=== PATIENT | male | born 1985 | race Caucasian/White ===

== ENCOUNTER 2016-09-06 15:19 | Emergency (ER) | payer MEDICAID, OTHER ==
[~2016-09-06] VITALS: Ht 180.3 cm; Wt 74.8 kg
[2016-09-06 15:19] VITALS: BP 149/74
[~2016-09-06 15:19] MED LIST: NO HOME MEDICATIONS; NO HOME MEDS
== END 2016-09-06 15:31 | disposition home or self-care (01) ==
LOC: ER 15:23
DX: S05.90XA Unspecified injury of unspecified eye and orbit, initial encounter (principal); J45.909 Unspecified asthma, uncomplicated; G40.909 Epilepsy, unspecified, not intractable, without status epilepticus; X58.XXXA Exposure to other specified factors, initial encounter; Y93.9 Activity, unspecified; Y92.9 Unspecified place or not applicable; Y99.9 Unspecified external cause status
CPT/HCPCS: 99283; A4606; Z7610

== ENCOUNTER 2018-02-27 16:31 | Inpatient (IN) | payer MEDICAID, OTHER ==
[~2018-02-27] VITALS: Ht 180.3 cm; Wt 70.3 kg
--- NOTE | 2018-02-27 16:32 | NUR ---
PT ISIDRO FROM THE STREETS TO ER BED 14. PT C/O CHEST AND GENERALIZED BODY ACHES. STATES WAS AT [facility] TODAY AND LEFT BECAUSE HE WAS NOT TREATED NICE. 05/31 PAIN. FEVER AT 103 BUS CLEANER. GOWNED AND PLACED ON MONITOR. AWAITING MD STEVENS.
--- NOTE | 2018-02-27 16:45 | NUR ---
IV LINE STARTED BLOOD DRAWN AND SENT TO LAB.
--- NOTE | 2018-02-27 16:50 | NUR ---
DR LENTZ AT BEDSIDE FOR EVAL.
[2018-02-27] MEDS ORDERED: ACETAMINOPHEN ES 500 MG TABLET ONE (16:54)
[2018-02-27] MEDS ORDERED: VANCOMYCIN 1 GM in IV D5W 250 ML IV ONE (17:00)
[2018-02-27] MEDS ORDERED: PIPERACILLIN /TAZOBACTAM 3.375 G in IV D5W 50 ML IV ONE (17:00)
[2018-02-27] MEDS ORDERED: MORPHINE SULFATE INJ 2 MG/ML DISP.SYRIN IV ONE (17:00)
[2018-02-27] MEDS ORDERED: ACETAMINOPHEN ES 500 MG TABLET PO ONE (17:00)
[2018-02-27] MEDS ORDERED: IV NS 0.9% 1,000 ML BAG IV ONE (17:00)
[2018-02-27 17:25] LABS: CALCIUM, SERUM 7.5 mg/dL (8.5-10.1); CARBON DIOXIDE 23 mmol/L (21-32); CHLORIDE 103 mmol/L (98-107); CREATININE 1.1 mg/dL (0.6-1.3); GLUCOSE 130 mg/dL (74-106); POTASSIUM 3.8 mmol/L (3.5-5.1); SODIUM SERUM 132 mmol/L (136-145); UREA NITROGEN, BLOOD 21 mg/dL (7-18)
[2018-02-27] MEDS ORDERED: MORPHINE SULFATE INJ 4 MG/ML DISP.SYRIN ONE (17:26)
[2018-02-27] MEDS ORDERED: MORPHINE SULFATE INJ 2 MG/ML DISP.SYRIN ONE (17:26)
[2018-02-27 17:27] LABS: INR 1.1 (0.85-1.15)
[2018-02-27 17:31] LABS: TROPONIN I < 0.017 ng/mL (0.00-0.056)
[2018-02-27 17:37] LABS: ALANINE AMINOTRANSFERASE 32 U/L (12-78); ALBUMIN 2.3 g/dL (3.4-5.0); ALKALINE PHOSPHATASE 72 U/L (46-116); ASPARTATE AMINOTRANSFERASE 23 U/L (15-37); B-TYPE NATRIURETIC PEPTIDE 665 PG/ML (0-125); BILIRUBIN,DIRECT 0.2 mg/dL (0.0-0.2); BILIRUBIN,TOTAL 0.5 mg/dL (0.2-1.0); TOTAL PROTEIN, SERUM 6.9 g/dL (6.4-8.2)
[2018-02-27 17:44] LABS: BASOPHILS % (AUTO) 0.7 % (0.0-2.0); EOSINOPHILS % (AUTO) 1.1 % (0.0-6.0); HEMATOCRIT 24 % (39-51); HEMOGLOBIN 7.9 g/dL (13.5-17.5); LYMPHOCYTES # (AUTO) 0.1 /CMM (0.8-4.8); LYMPHOCYTES % (AUTO) 15.1 % (20.0-44.0); MEAN CORPUSCULAR HEMOGLOBIN 27 PG (26.0-33.0); MEAN CORPUSCULAR HGB CONC 33 g/dl (31.0-36.0); MEAN CORPUSCULAR VOLUME 81 fL (80-96); MONOCYTES # (AUTO) 0.1 /CMM (0.1-1.30); MONOCYTES % (AUTO) 17.6 % (2.0-12.0); NEUTROPHILS # (AUTO) 0.3 /CMM (1.8-8.9); NEUTROPHILS % (AUTO) 65.5 % (43.0-81.0); PLATELET COUNT (AUTO) 84 /CMM (150-450); RDW COEFFICIENT OF VARIATION 16.5 (11.5-15.0); RED BLOOD CELL COUNT(AUTO) 2.96 MIL/uL (4.5-6.0)
[2018-02-27 17:56] LABS: WHITE BLOOD COUNT (AUTO) 0.4 K/uL (4.3-11.0)
--- NOTE | 2018-02-27 18:00 | NUR ---
CALLED NURSING SUP. FOR TELE BED
[2018-02-27] MEDS ORDERED: IV NS 0.9% 1,000 ML IV PRN (18:43)
[2018-02-27] MEDS ORDERED: ONDANSETRON HCL/PF 4 MG/2 ML VIAL IVP PRN (19:00)
[2018-02-27] MEDS ORDERED: ACETAMINOPHEN 325 MG TABLET PO PRN (19:00)
[2018-02-27] MEDS ORDERED: TEMAZEPAM 15 MG CAPSULE PO PRN (19:00)
[2018-02-27] MEDS ORDERED: MAG HYDROX/AL HYDROX/SIMETH 30 ML UDC PO PRN ×2 (19:00→20:00)
[2018-02-27] MEDS ORDERED: MAGNESIUM HYDROXIDE 30 ML UDC PO PRN ×2 (19:00→20:00)
[2018-02-27] MEDS ORDERED: ENOXAPARIN SODIUM 40 MG/0.4 ML DISP.SYRIN SQ SCH (19:00)
--- NOTE | 2018-02-27 19:15 | NUR ---
TELE 321-1 FOR CHEST PAIN AND ENDOCARDITIS, MIKE MARTINEZ ADMITTING
--- NOTE | 2018-02-27 19:35 | NUR ---
tele/rn notes NEW ADMITTED PATIENT ARRIVED ON A GURNEY FROM ER WITH COMPLAIN OF SEVERE PAIN GENERALIZED, COMPLAINING UNABLE TO SWALLOW PILL, PATIETN ALERT, ORIENTED,WITHE ELEVATED BODY TEMPERATURE TEMPERATURE AT 100.2, PULSE 105, R- 16, O2 SAT AIN RA AT 100%, WITH LOW B/P AT 89/56.. IN NS ORDERED TO RUN AT 100ML/HR. TELE AT SR 90, OBSERVE BIG TOE OPEN WOUND. LFA GAUGE 18, PATENT W/ NO/ S/S OF INFILTRATION. RECEIVED REPORT FO TELE MONITORING , MD MARTINEZ ADMITTING MD, HX OF AIDS, HIV, SEIZURE AND ASTHMA, NKA/. BED IN LOCK POSIITON. WILL F/U WITH ADMITTTING MD FOR ORDER, PAIN MEDICATION REQUESTED MONITORING.
[2018-02-27 20:00] VITALS: BP 108/55
[2018-02-27] MEDS: IV NS 0.9% 1,000 ML IV PRN (20:35)
--- NOTE | 2018-02-27 20:35 | NUR ---
BERNABE NICHOLS AT BED SIDE
[2018-02-27 20:42] VITALS: BP 89/56
[2018-02-27] MEDS ORDERED: FEE PK DOSING 1 MIN EA MC ONE (20:50)
[2018-02-27] MEDS: MORPHINE SULFATE INJ 2 MG/ML DISP.SYRIN IM PRN (21:44)
[2018-02-27] MEDS: ONDANSETRON HCL/PF 4 MG/2 ML VIAL IVP PRN (21:49)
[2018-02-27] MEDS: ENOXAPARIN SODIUM 40 MG/0.4 ML DISP.SYRIN SQ SCH (21:50)
--- NOTE | 2018-02-27 22:00 | NUR ---
tele/rn notes patient in bed, skin warm to touch monitoring for any s/s of complication, no bleeding observe, and reported
--- NOTE | 2018-02-27 22:10 | NUR ---
TELE/RN PATIENT REPORTED PAIN SEVERE GENERALIZED, PHYSICAL CHEMIST LEE ORDERED FOR PRN PAIN MEDICATION MORPHINE 1MG IVP EVERY 4HRS, TO HOLD IF SBP <100
[2018-02-28] VITALS: BP 106/64
[2018-02-28] MEDS ORDERED: PIPERACILLIN /TAZOBACTAM 3.375 G VIAL IV ONE ×2 (00:33→04:50)
[2018-02-28] MEDS: PIPERACILLIN /TAZOBACTAM 3.375 G in IV D5W 50 ML IV SCH ×4 (00:40→18:11)
--- NOTE | 2018-02-28 01:17 | NUR ---
TELE/RN NOTES PATIENT OBSERVE PAIN SEVERE, GUARDING, GRIMACE, VERBALIZE PAIN
[2018-02-28] MEDS: MORPHINE SULFATE INJ 2 MG/ML DISP.SYRIN IM PRN ×2 (01:47→06:50)
[2018-02-28] MEDS: VANCOMYCIN 1 GM in IV D5W 250 ML IV SCH ×3 (02:09→20:00)
[2018-02-28 04:00] VITALS: BP_SYST 112; BP_SYST 150; BP_DIAS 56; BP_DIAS 59; BP_DIAS 65
--- NOTE | 2018-02-28 04:00 | NUR ---
tele/rn notes LAB WAS CONTACTED URINE COLLECTED
--- NOTE | 2018-02-28 06:27 | NUR ---
317-1 TELE/RN NOTES PATIENT IN SINUS RYTHM AT 90, PAIN REPORTED, OBSERVE, BEING MANAGE WITH PRN MORPHINE 1MG/0.5ML IVP, ON REVERSE ISOLATION WITH LOW WBC, ALERT, ORIENTED, , WILL ENDORSE TO AM RN FOR JOEL.
[2018-02-28] MEDS ORDERED: PANTOPRAZOLE 40 MG TABLET.DR PO SCH (07:30)
[2018-02-28 08:00] VITALS: BP 111/59
--- NOTE | 2018-02-28 08:00 | NUR ---
TELE/RN AM NOTES RECEIVED PATIENT ALERT AND ORIENTED X4.VERBALLY RESPONSIVE.IMPATIENT.INSISTS TO HAVE ICE CHIPS INSPITE OF EXPLAINING HE'S ON NPO AND AWAITING FOR MUSIC MANAGER AND HOSPITALIST TO SEE HIM.PT HAS FEVER T 102.6.COOLING MEASURES RENDERED.WILL INFORM MD AND ADMINISTER TYLENOL PRN IS PO IS OK.ON SINUS RYTHM AT 74.DENIES PAIN AT THIS TIME. ON REVERSE ISOLATION PRECAUTIONS DUE TO LOW WBC AND NEUTROPENIA.CALL LIGHT PLACED WITHIN REACH.
[2018-02-28] MEDS: IV NS 0.9% 1,000 ML IV PRN (08:35)
[2018-02-28] MEDS: ACETAMINOPHEN 325 MG TABLET PO PRN (09:32)
[2018-02-28] MEDS: PANTOPRAZOLE 40 MG TABLET.DR PO SCH (09:32)
[2018-02-28] MEDS: ONDANSETRON HCL/PF 4 MG/2 ML VIAL IVP PRN ×2 (10:36→18:12)
[2018-02-28 12:01] LABS: CALCIUM, SERUM 6.8 mg/dL (8.5-10.1); CREATININE 1.1 mg/dL (0.6-1.3); POTASSIUM 3.4 mmol/L (3.5-5.1)
[2018-02-28 16:00] VITALS: BP 117/62
--- NOTE | 2018-02-28 16:11 | NUR ---
FOLLOW UP CALL MADE TO [facility] REGARDING PT'S CARDIAC CATH RECORD.PER MEDICAL RECORD:AISHWARYA,NO CARDIAC CATH PROCEDURE WAS DONE DURING PT'S STAY IN [facility].
--- NOTE | 2018-02-28 17:33 | NUR ---
CALLED DR TERESA BRISCOE TO CLARIFY IF HE WANTS TO ADD CBC TEST WITH THE VANCO TROUGH BLOOD DRAW AT THIS TIME SINCE THERE WAS NO CBC DRAWN THIS AM.DR MOORE STATED TO JUST DO THE CBC IN AM.
[2018-02-28] MEDS ORDERED: POTASSIUM CHLORIDE 20 MEQ TAB.PRT.SR PO ONE (18:00)
[2018-02-28] MEDS: MORPHINE SULFATE INJ 2 MG/ML DISP.SYRIN IV PRN ×2 (18:11→23:31)
--- NOTE | 2018-02-28 18:30 | NUR ---
PT RESTING IN BED WITH ONGOING ZOSYN IVPB-KINKED DUE TO PT LEANING ON THE TUBING.RESUMED ONGOING ZOSYN IVPB AND WILL ENDORSE VANCO IV TO NIGHT NURSE.PT DENIES ANY DISTRESS.CALL LIGHT PLACED WITHIN REACH.
--- NOTE | 2018-02-28 19:45 | NUR ---
RN OPENING NOTES RECEIVED REPORT FROM DAYSHIFT RN WILIAM. FOUND Pt AWAKE, RESTING IN BED. NO S/S OF ACUTE DISTRESS OR SOB NOTED. Pt IS A/OX3, VERBAL, ABLE TO MAKE NEEDS KNOWN. IV ACCESS ON LFA #18G, IVF NS @100ML/HR. & LFA #18G, SL. SAFETY MEASURES IN PLACE. BED LOW, LOCKED, HOB ELEVATED, SIDE RAILS UP, CALL LIGHT and BED SIDE TABLE WITHIN REACH. WILL CONTINUE TO MONITOR Pt THROUGHOUT THE NIGHT FOR SAFETY.
[2018-02-28 20:00] VITALS: BP 104/62
[2018-02-28] MEDS: METHADONE HCL 10 MG TABLET PO SCH (20:44)
[2018-02-28] MEDS: ENOXAPARIN SODIUM 40 MG/0.4 ML DISP.SYRIN SQ SCH (20:45)
[2018-02-28] MEDS ORDERED: CLONIDINE HCL 0.3 MG/24H PTWK 1 EA PATCH TD SCH (21:00)
[2018-02-28] MEDS ORDERED: CEFTRIAXONE 1 G in IV NS 0.9% 50 ML IV SCH (21:00)
--- NOTE | 2018-02-28 23:12 | NUR ---
RN NOTES STARTED ROCEPHIN LATE DUE TO THE VANCO BEING GIVEN LATE.
[2018-03-01] MEDS: VANCOMYCIN 1 GM in IV D5W 250 ML IV SCH ×2 (03:06→10:26)
[2018-03-01] MEDS: MORPHINE SULFATE INJ 2 MG/ML DISP.SYRIN IV PRN (03:39)
[2018-03-01] MEDS: IV NS 0.9% 1,000 ML IV PRN (06:44)
--- NOTE | 2018-03-01 06:45 | NUR ---
RN CLOSING NOTES NO SIGNIFICANT CHANGES IN Pt's CONDITION. Pt REMAINS IN STABLE CONDITION AT THIS TIME. NO S/S OF ACUTE DISTRESS OR SOB NOTED DURING THE NIGHT. ALL NEEDS MET AND ATTENDED TO. SAFETY MEASURES IN PLACE. Pt REFUSED AM LABS, SAID TO COME BACK LATER AFTER HE SLEEPS MORE. WILL ENDORSE TO DAYSHIFT RN FOR Pt's JOEL.
[2018-03-01] MEDS: PANTOPRAZOLE 40 MG TABLET.DR PO SCH ×2 (07:30→08:30)
[2018-03-01 08:00] VITALS: BP 121/72
--- NOTE | 2018-03-01 08:00 | NUR ---
MS RN AM NOTES RECEIVED Pt AWAKE, RESTING IN BED. NO S/S OF ACUTE DISTRESS OR SOB NOTED. Pt IS A/OX3, VERBAL, ABLE TO MAKE NEEDS KNOWN. IV ACCESS ON LFA #18G, IVF NS @100ML/HR. & LFA #18G, SL.PT AMBULATING ALONG THE HALLWAY AND WANTED TO SMOKE OUTSIDE AND IS IMPATIENT AND SCREAMING-WANTING TO SMOKE RIGHT AWAY.EXPLAINED THAT OUR STAFF IS STILL FEEDING PATIENTS FOR BREAKFAST AT THIS TIME AND HE NEEDS TO FOLLOW HOSPITAL POLICY.PT SIGNED UP THE SMOKING CONSENT AND ANGRILY WENT TO BACK TO HIS ROOM. SAFETY MEASURES IN PLACE. BED LOW, LOCKED, HOB ELEVATED, SIDE RAILS UP, CALL LIGHT and BED SIDE TABLE WITHIN REACH. WILL CONTINUE TO MONITOR
[2018-03-01] MEDS: METHADONE HCL 10 MG TABLET PO SCH ×2 (08:34→09:00)
--- NOTE | 2018-03-01 08:36 | NUR ---
ATTEMPTED TO ADMINISTER MORNING MEDICATION. PATIENT STATES METHADONE DOESN'T WORK AND REFUSED ALL MEDICATION. PATIENT RAISED VOICE WHEN EXPLAINING REFUSAL OF MEDICATION. Addendum: 03/01/18 at 0838 by RADHA DONOHUE RN Amended: Links added.
--- NOTE | 2018-03-01 08:40 | NUR ---
PT REFUSED METHADONE SAYING IT DOESN'T WORK AND PREFERS TO TAKE MORPHINE IV EVEN IF THE PT HASN'T EVEN TAKEN METHADONE YET AT ALL.EXPLAINED THE RISKS AND BENEFITS.PT WAS VERY ANGRY.
[2018-03-01 11:07] LABS: BASOPHILS % (AUTO) 0.3 % (0.0-2.0); EOSINOPHILS % (AUTO) 0.3 % (0.0-6.0); HEMATOCRIT 29 % (39-51); HEMOGLOBIN 9.7 g/dL (13.5-17.5); LYMPHOCYTES # (AUTO) 0.3 /CMM (0.8-4.8); LYMPHOCYTES % (AUTO) 38.8 % (20.0-44.0); MEAN CORPUSCULAR HEMOGLOBIN 27 PG (26.0-33.0); MEAN CORPUSCULAR HGB CONC 33 g/dl (31.0-36.0); MEAN CORPUSCULAR VOLUME 82 fL (80-96); MONOCYTES # (AUTO) 0.1 /CMM (0.1-1.30); MONOCYTES % (AUTO) 19.3 % (2.0-12.0); NEUTROPHILS # (AUTO) 0.3 /CMM (1.8-8.9); NEUTROPHILS % (AUTO) 41.3 % (43.0-81.0); PLATELET COUNT (AUTO) 60 /CMM (150-450); RDW COEFFICIENT OF VARIATION 16.6 (11.5-15.0)
[2018-03-01 11:11] LABS: *BASOS 0 % (Not Estab.); *COMMENTS Note: (.); *EOS 0 % (Not Estab.); *HCT 22.3 % (37.5-51.0); *HGB 7.3 g/dL (13.0-17.7); *LYMPHOCYTES 33 % (Not Estab.); *LYMPHS, ABSOLUTE 0.2 x10E3/uL (0.7-3.1); *MCH 26.3 pg (26.6-33.0); *MCHC 32.7 g/dL (31.5-35.7); *MCV 80 fL (79-97); *MONOCYTES 6 % (Not Estab.); *NEUTROPHILS 61 % (Not Estab.); *NRBC 10 % (0 - 0); *PLT 27 x10E3/uL (150-379); *RBC 2.78 x10E6/uL (4.14-5.80); *RDW 16.5 % (12.3-15.4)
[2018-03-01 11:13] LABS: WHITE BLOOD COUNT (AUTO) 0.7 K/uL (4.3-11.0)
--- NOTE | 2018-03-01 11:19 | NUR ---
Social service consult requested by director case Cyndi Btety for homeless and HIV. Pt. is a 32 year old male who was admitted to [facility] for chest pain and endocarditis. SHERMAN met with pt. bedside. Pt. is alert and oriented x 4. Pt. was cooperative with SW during the assessment. Pt. has a history of HIV diagnosis since 2010. The patient has not been on any HIV medications. Pt. also has a history of seizures and heroin use. He also has a history of seizures and heroin use. Pt. was recently at [facility] for endocarditis but left AMA because he felt they were not treating him well. Pt. states he is homeless and has been for the past few months. Pt. became homeless after his roommate . Pt. is a heroin user but states he has not used in two months. Pt. denies alcohol use but uses marijuana once in a while. Pt. was caught smoking marijuana in the hospital and it was confiscated. Pt. has no source of income and receives food stamps only. SHERMAN encouraged pt. to apply for General Relief at [facility] located at [address] [place] [address] in [place] since pt. has an open case with that office. Pt. states he has been staying in motels. When asked how he can afford motels, pt. 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 declined stating he will take the resources with him. Pt. stated he will most likely go to his mother in [facility]. Pt. is in contact with his mother. SHERMAN also gave pt. list of [facility] clinics and encouraged pt. to go to them for further resources and HIV medication management. SHERMAN gave pt. homeless residential and food bank resources along with F clinics locations and contact information. No other social service needs are requested at this time. SW is available, if needed.
[2018-03-01 11:37] LABS: MAGNESIUM 1.4 mg/dL (1.8-2.4); PHOSPHORUS 2.7 mg/dL (2.5-4.9); POTASSIUM 3.9 mmol/L (3.5-5.1)
--- NOTE | 2018-03-01 13:00 | NUR ---
PT APPEARS BETTER GETTING OUT OF BED AMBULATING INDEPENDENTLY ALONG THE HALLWAY EXPLAINING TO HIM TO WEAR MASKS SINCE HIS IMMUNE SYSTEM IS LOW-PT IS NON COMPLIANT.NO MORPHINE IV WAS GIVEN UP TO THIS TIME AND HASN'T VOMITED SINCE MORNING. PT EVEN VERBALIZED LAST NIGHT OF REFUSING ZOFRAN IF HE VOMITS SAYING ZOFRAN MAKES HIS PAIN WORSE.PT STATED THAT MORPHINE WORKS BETTER ON ITS OWN WITHOUT ZOFRAN EVEN WHEN HE'S VOMITING.PT EVEN WENT OUT TO SMOKE TWICE TODAY ACCOMPANIED BY EXCEL ANALYST.NO S/S OF PAIN OR DISTRESS.
--- NOTE | 2018-03-01 13:35 | NUR ---
PT CHANGED HIS MIND AND WANTED TO TAKE HIS METHADONE HCL 10 MG PO NOW.PT HAS NO EPISODE OF VOMITING SINCE AM AND NO MORPHINE WAS GIVEN UP TO THIS TIME.PT HAD WATERY STOOL SPLATTERED ALL OVER THE RODRIGUEZ OF HIS TOILET.SPOKE TO THE PT GENTLY AND EXPLAINED TO HIM NOT TO DO THAT AGAIN.ASKED HELP FROM STUFFING MACHINE OPERATOR TO CLEAN IT UP.
[2018-03-01] MEDS: ACETAMINOPHEN 325 MG TABLET PO PRN (13:54)
--- NOTE | 2018-03-01 13:54 | NUR ---
Patient stated he was willing to take morning medication now. Attempted to administer Methadone and protonix now. Patient refused stating he wanted liquid medication only. Offered to crush methadone and mix with apple sauce which was a method that was used yesterday, but patient refused. Oral temperature was 100.3. Attempted to administer tylenol but patient refused. Provided patient with ice packs. Notified Delicia BARRIENTOS secondary to medication refusal. Addendum: 03/01/18 at 1401 by RADHA DONOHUE RN Amended: Links added.
--- NOTE | 2018-03-01 14:00 | NUR ---
PT REFUSED AGAIN SECOND TIME TO TAKE HIS METHADONE,TYLENOL 650 MG PO FOR HIS MILD FEVER OF 100.3 AND PROTONIX INSPITE OF EXPLAINING ITS RISKS AND BENEFITS.PT STATED HE CAN'T SWALLOW THEM EVEN IF I OFFERED TO CRUSH THEM WITH APPLE SAUCE WHICH HE WAS ABLE TO SWALLOW WITHOUT DIFFICULTY YESTERDAY. PT WAS SO ANGRY AND WAS SCREAMING WANTING TO SEE THE PAIN MANAGEMENT DOCTOR.NOTIFIED DR MOBLEY AND MADE AWARE.DR MOBLEY STATED NO METHADONE,NO MORPHINE.NO REPLACEMENT FOR THE METHADONE NEEDED.
[2018-03-01 16:00] VITALS: BP 117/71
[2018-03-01] MEDS ORDERED: NYSTATIN (PYXIS) 500,000 UNIT/5 ML ORAL.SUSP PO SCH (17:30)
--- NOTE | 2018-03-01 18:23 | NUR ---
PT'S VANCO TROUGH IS 23 AND PHARMACISTDIPAK CALLED AND WILL CHANGE THE PRESENT [facility] IVPB.WILL ENDORSE TO NIGHT NURSE.
--- NOTE | 2018-03-01 18:50 | NUR ---
PT SMOKED OUTSIDE 3X WITH BECK OPERATOR DURING THE SHIFT AMBULATING INDEPENDENTLY ALONG THE HALLWAY WITH STEADY GAIT .PT STATED THAT HE MADE BM 3X TODAY.INSTRUCTED PT TO SHOW THE NURSE HIS BM AND NOT TO FLUSH THE TOILET.PT WANTS TO TAKE HIS METHADONE PILL NOW.EXPLAINED TO HIM THAT I ATTEMPTED 2X TO PULL OUT HIS METHADONE THIS AM AND AFTERNOON AND ONLY REFUSING IN THE END.PT HASN'T VOMITED THE WHOLE 12 HOUR SHIFT TODAY AND WAS ABLE TO EAT SOME FOOD TODAY COMPARED TO YESTERDAY'S WHERE HE WAS VOMITING HUGE AMOUNTS OF FLUIDS TWICE WHERE PT JUST STAYED IN BED THE WHOLE DAY AND WAS EVEN ASSISTED IN GETTING OOB DUE TO WEAKNESS.DR MOBLEY AND PT'S MOM,KIM AWARE.
--- NOTE | 2018-03-01 19:00 | NUR ---
PT ASKED FOR METHADONE FOR THE 4TH TIME AND EXPLAINED NOT TO REFUSE THIS TIME SINCE HE'S BEEN CHANGING HIS MIND AND REFUSED LATER ON.IT'S OK TO GIVE METHADONE PO PER DR MARLEY.WILL CRUSH WITH APPLE SAUCE.
[2018-03-01 20:00] VITALS: BP 118/69
[2018-03-01] MEDS ORDERED: METHADONE HCL 10 MG TABLET PO ONE (20:00)
[2018-03-01] MEDS: VANCOMYCIN 0.75 GM in IV NS 0.9% 250 ML IV SCH (20:00)
[2018-03-01] MEDS: NYSTATIN (PYXIS) 500,000 UNIT/5 ML ORAL.SUSP PO SCH (20:30)
[2018-03-01] MEDS: SULFAMETH/TRIMETH 800/160 MG 1 UDTAB TABLET PO SCH (20:31)
[2018-03-01] MEDS: AZITHROMYCIN 250 MG TABLET PO SCH (20:31)
[2018-03-01] MEDS: ACYCLOVIR 800 MG TABLET PO SCH (20:32)
[2018-03-01] MEDS: ENOXAPARIN SODIUM 40 MG/0.4 ML DISP.SYRIN SQ SCH ×2 (20:41→21:00)
[2018-03-01] MEDS: CEFEPIME 1 GM in IV D5W 50 ML IV SCH (20:42)
[2018-03-01] MEDS: FLUCONAZOLE (100 MG) 100 MG TABLET PO SCH (20:43)
--- NOTE | 2018-03-01 20:45 | NUR ---
RN NOTES PATIENT IS ALERT AND ORIENTED X4, IRRITABLE, ANXIOUS, DEMANDING TO SMOKE, ON REVERSE ISOLATION, NOT COMPLIANT, WANTS TO GO DOWN. EXPLAINED TO PATIENT ABOUT REVERSE ISOLATION, AND GIVEN A LIMIT OF ONE MORE TIME TO GO DOWN, PATIENT VERBALIZED UNDERSTANDING. NEW ORDERS FROM INFECTIOUS DISEASE MD, AND DR. HARRIS, HOUSE MOVER SUPERVISOR. NEEDS ATTENDED, CALL LIGHT WITHIN REACH.
[2018-03-01] MEDS: ONDANSETRON HCL/PF 4 MG/2 ML VIAL IVP PRN (20:50)
[2018-03-01] MEDS: TEMAZEPAM 15 MG CAPSULE PO PRN (21:26)
[2018-03-01] MEDS ORDERED: TBO-FILGRASTIM 480 MCG/0.8 ML ML SQ SCH (21:30)
--- NOTE | 2018-03-01 21:47 | NUR ---
LOVENOX HELD PLATELET 60, VANCOMYCIN HELD, VANCO TROUGH 23
[2018-03-01 22:53] VITALS: BP 118/69
[2018-03-02] MEDS: IV NS 0.9% 1,000 ML IV PRN (01:04)
--- NOTE | 2018-03-02 02:49 | NUR ---
NOTIFIED BY RN FIELD APPLICATIONS SPECIALIST CRAIG NOT AVAILABLE
--- NOTE | 2018-03-02 02:58 | NUR ---
NOTIFIED PHARMACIST BASIC SCIENCES DEAN REGARDING VANCO TROUGH RESULT OF 23, PER PHARMACIST, HOLD DOSE AT 0400 AND WAIT FOR NEXT TROUGH DONE ON 03/02/18 AT 1100
[2018-03-02] MEDS: VANCOMYCIN 0.75 GM in IV NS 0.9% 250 ML IV SCH ×3 (03:44→17:39)
--- NOTE | 2018-03-02 06:47 | NUR ---
PATIENT IS CALM, COOPERATIVE, NO DISTRESS, SEEN BY INFECTIOUS DISEASE MD AND PROCESS IMPROVEMENT MANAGER WITH NEW ORDERS, RECEIVED IV ABX SCHEDULED, VANCOMYCIN IV HELD X2, VANCO TROUGH 23, PHARMACY AWARE, UNABLE TO GIVE GRANIX, MEDICATION NOT AVAILABLE, STAYED AND SLEPT IN ROOM FOR 8 HOURS, RECEIVED CALLS FROM MOTHER AND GIRLFRIEND. NEEDS ATTENDED, CALL LIGHT WITHIN REACH.
--- NOTE | 2018-03-02 08:00 | NUR ---
MS RN AM NOTES RECEIVED PATIENT ALERT AND ORIENTED X4.VERBALLY RESPONSIVE.IMPATIENT AND SCREAMS AT STAFF.AFEBRILE.LOVES TO HAVE ICE CHIPS .DENIES PAIN AT THIS TIME. ON REVERSE ISOLATION PRECAUTIONS DUE TO LOW WBC AND NEUTROPENIA.CALL LIGHT PLACED WITHIN REACH.
[2018-03-02 08:25] VITALS: BP 117/82
[2018-03-02 08:45] LABS: BASOPHILS % (AUTO) 1.1 % (0.0-2.0); EOSINOPHILS % (AUTO) 1.1 % (0.0-6.0); HEMATOCRIT 24 % (39-51); HEMOGLOBIN 7.8 g/dL (13.5-17.5); LYMPHOCYTES # (AUTO) 0.4 /CMM (0.8-4.8); LYMPHOCYTES % (AUTO) 42.3 % (20.0-44.0); MEAN CORPUSCULAR HEMOGLOBIN 27 PG (26.0-33.0); MEAN CORPUSCULAR HGB CONC 33 g/dl (31.0-36.0); MEAN CORPUSCULAR VOLUME 80 fL (80-96); MONOCYTES # (AUTO) 0.2 /CMM (0.1-1.30); MONOCYTES % (AUTO) 20.1 % (2.0-12.0); NEUTROPHILS # (AUTO) 0.4 /CMM (1.8-8.9); NEUTROPHILS % (AUTO) 35.4 % (43.0-81.0); PLATELET COUNT (AUTO) 58 /CMM (150-450); RDW COEFFICIENT OF VARIATION 15.9 (11.5-15.0); RED BLOOD CELL COUNT(AUTO) 2.94 MIL/uL (4.5-6.0)
[2018-03-02 08:46] LABS: CREATININE 1.1 mg/dL (0.6-1.3); POTASSIUM 3.4 mmol/L (3.5-5.1)
[2018-03-02] MEDS: NYSTATIN (PYXIS) 500,000 UNIT/5 ML ORAL.SUSP PO SCH ×4 (09:07→21:19)
[2018-03-02] MEDS: FLUCONAZOLE (100 MG) 100 MG TABLET PO SCH (09:07)
[2018-03-02] MEDS: PANTOPRAZOLE 40 MG TABLET.DR PO SCH (09:08)
[2018-03-02] MEDS: METHADONE HCL 10 MG TABLET PO SCH (09:08)
--- NOTE | 2018-03-02 09:19 | NUR ---
PT WAS SO ANXIOUS AND WANT TO GO DOWN FOR A SMOKE.EXPLAINED TO THE PT THAT HE NEEDS TO HAVE HIS ATB IVPB BADLY AND HAS TO COME BACK IN 10 MINS.PT AGREED.PT WENT DOWN FOR A SMOKE WITH A BALANCE WHEEL HAND FILER.
[2018-03-02] MEDS: ACYCLOVIR 800 MG TABLET PO SCH ×2 (09:36→17:39)
[2018-03-02] MEDS: CEFEPIME 1 GM in IV D5W 50 ML IV SCH ×2 (09:36→21:19)
[2018-03-02] MEDS ORDERED: LOPERAMIDE HCL UDC(2 MG/10 ML) 2 MG/10 ML UDC PO PRN (10:30)
[2018-03-02] MEDS ORDERED: POTASSIUM CHLORIDE 20 MEQ TAB.PRT.SR PO SCH (10:30)
[2018-03-02 10:38] LABS: EOSINOPHILS % (MANUAL) 1 % (0-4); LYMPHOCYTES % (MANUAL) 45 % (16-48); MONOCYTES % (MANUAL) 19 % (0-11.0); NEUTROPHILS % (MANUAL) 35 (42-76)
[2018-03-02] MEDS: TBO-FILGRASTIM 480 MCG/0.8 ML ML SQ SCH (10:44)
[2018-03-02] MEDS ORDERED: LIDOCAINE VISCOUS 2% UD 15 ML UDC MM ONE (11:42)
[2018-03-02] MEDS ORDERED: diphenhydrAMINE HCL ELIX 25 MG/10 ML UDC PO ONE (11:42)
[2018-03-02] MEDS ORDERED: MAG HYDROX/AL HYDROX/SIMETH 30 ML UDC PO ONE (11:42)
[2018-03-02] MEDS ORDERED: MAGIC MOUTHWASH MM PRN (12:00)
--- NOTE | 2018-03-02 14:34 | NUR ---
PT IS IN A BETTER MOOD AND KEEPS SAYING SORRY FOR HIS HOT TEMPER AND SCREAMING.ACTIVE LISTENING AND EMOTIONAL SUPPORT PROVIDED.VERBALIZES HOW WE PROVIDE HIM GOOD CARE COMPARED TO OTHER HOSPITALS.
[2018-03-02 16:07] VITALS: BP 111/64
[2018-03-02] MEDS: SULFAMETH/TRIMETH 800/160 MG 1 UDTAB TABLET PO SCH (18:03)
[2018-03-02] MEDS: AZITHROMYCIN 250 MG TABLET PO SCH (18:03)
--- NOTE | 2018-03-02 18:43 | NUR ---
PT JUST ORDERED ARCHIVIST POLITICAL HISTORY SAYING HIS THROAT IS GETTING BETTER AND WILL HAVE NO PROBLEM SWALLOWING/EATING THE PIZZA.PT WAS COOPERATIVE AND DENIES ANY PAIN OR DISTRESS.PT JUST TOOK THE AM ROUTINE METHADONE DOSE AND DIDN'T ASK FOR ANY MORPHINE OR OTHER PAIN MEDICINE AFTER THAT.NO VOMITING EPISODE.PT HAD SEMI WATERY STOOL IN AM -INFORMED DR TERESA BRISCOE AND MADE AWARE WITH ORDERS FOR LOPERAMIDE LIQUID.NOTIFIED PHARMACIST,CARISA EARLY AFTERNOON AND CALLED HER SECOND TIME TO REFILL BOTH OMNICELL.
[2018-03-02] MEDS: LOPERAMIDE HCL (2 MG CAP) 2 MG CAPSULE PO PRN (19:07)
--- NOTE | 2018-03-02 19:25 | NUR ---
MS RN OPENING NOTES RECEIVED PT AWAKE, RESTING IN BED. NO S/S OF ACUTE DISTRESS OR SOB NOTED. PT IS A/OX4, VERBAL, ABLE TO MAKE NEEDS KNOWN. IV ACCESS TO RIGHT HAND #20G, IVF NS @100ML/HR. & LFA#18G, SL. PT IS ABLE TO AMBULATE & WANTS TO GO TO SMOKE. .EXPLAINED THAT THE NURSE WILL TAKE HIM SHORTLY, AGREED @ THIS TIME TO WAIT. HAS HX OF IRRITABILITY/AGITATION. ON REVERSE ISOLATION. ABLE TO SWALLOW WITHOUT ASPIRATING. HAD PIZZA A WHILE AGO, TOLERATED WELL. BRP. SAFETY MEASURES IN PLACE. BED LOW, LOCKED, HOB ELEVATED, SIDE RAILS UP, CALL LIGHT and BED SIDE TABLE WITHIN REACH. WILL CONTINUE TO MONITOR CLOSELY.
[2018-03-02 20:00] VITALS: BP 108/66
[2018-03-02] MEDS: ENOXAPARIN SODIUM 40 MG/0.4 ML DISP.SYRIN SQ SCH (21:00)
--- NOTE | 2018-03-02 21:00 | NUR ---
MS RN NOTE PT WENT TO SMOKE OUT WITH THE NURSE & CAME BACK. NO AGITATION OR IRRITABILITY NOTED. COOPERATIVE @ THIS TIME WITH MEDS BUT REFUSING NS IVF.
--- NOTE | 2018-03-02 21:27 | NUR ---
HELD LOVENOX PT'S PLATELETS NOTED TO BE 58 TODAY & PER MD ORDER LOVENOX NEEDS TO BE HELD IF PLATELETS ARE 60 OR BELOW. MD ORDER FOLLOWED.
--- NOTE | 2018-03-02 23:00 | NUR ---
REFUSED IFV PT REFUSED IVF ORDERED BUT AGREED TO HAVE IV ATB'S. STATED HE HAS GOOD PO INTAKE, DOESN'T NEED IVF. WHEN TRIED TO EXP-RINKU, GOT UPSET & CONTINUED TO REFUSE.
[2018-03-03] MEDS: VANCOMYCIN 0.75 GM in IV NS 0.9% 250 ML IV SCH (01:09)
--- NOTE | 2018-03-03 01:30 | NUR ---
MS RN NOTE NURSE STARTED THE IV ATB VANCO & WAITED IN THE ROOM TO MAKE SURE THAT IV IS RUNNING OK BUT PT GOT UPSET & ASKED THE NURSE TO LEAVE THE ROOM RIGHT AWAY, WHEN EXPLAINED, PT USED FOUL LANGUAGE TOWARDS THE NURSE. MADE SURE THAT IV WAS RUNNING OK & LEFT THE ROOM. MONITORING CLOSELY.
--- NOTE | 2018-03-03 06:50 | NUR ---
MS RN CLOSING NOTES PT IS ASLEEP @ THIS TIME. NO S/S OF ACUTE DISTRESS OR SOB NOTED. PT IS A/OX4, VERBAL, ABLE TO MAKE NEEDS KNOWN. IV ACCESS TO RIGHT HAND #20G, IVF NS @100ML/HR. & LFA#18G, SL. PT IS ABLE TO AMBULATE WITH STANDBY ASSISTANCE. HAS HX OF IRRITABILITY/AGITATION. ON REVERSE ISOLATION. ABLE TO SWALLOW WITHOUT ASPIRATING. NO BM @ ROLLER PAINTER. BRP. SAFETY MEASURES IN PLACE. BED LOW, LOCKED, HOB ELEVATED, SIDE RAILS UP, CALL LIGHT and BED SIDE TABLE WITHIN REACH. WILL ENDORSE TO AM RN.
--- NOTE | 2018-03-03 07:50 | NUR ---
MS RN NOTES LAB STATED PT REFUSED BLOOD DRAW. WENT IN AND PT STATED THAT "I DID NOT REFUSE, I WANTED THEM TO COME BACK AT 9 BECAUSE IM STILL SLEEPING." WILL CONTINUE TO FOLLOW UP.
--- NOTE | 2018-03-03 07:53 | NUR ---
MS RN OPENING NOTES RECEIVED PT LAYING IN BED WITH HOB ELEVATED, RESTING COMFORTABLY. PT IS EASILY AROUSABLE. RESPIRATIONS ARE EVEN AND UNLABORED, NOT IN ANY DISTRESS NOTED. IV INTACT, NO INFILTRATION NOTED. DRESSING KEPT CLEAN AND DRY. SAFETY MEASURES ARE IN PLACE. INSTRUCTED PT TO USE CALL LIGHT WHEN ASSISTANCE IS NEEDED, CALL LIGHT IS LEFT WITHIN REACH. PT STATED HE "JUST WANTS TO BE LEFT ALONE AND SLEEP." WILL CONTINUE TO MONITOR THROUGHOUT SHIFT FOR CONTINUITY OF CARE.
[2018-03-03 08:00] VITALS: BP 104/68
--- NOTE | 2018-03-03 08:50 | NUR ---
MS RN NOTES CALLED LAB AND STATED THEY WILL SEND SOMEONE TO DO BLOOD DRAW.
[2018-03-03] MEDS: METHADONE HCL 10 MG TABLET PO SCH (09:00)
--- NOTE | 2018-03-03 09:00 | NUR ---
MS RN NOTES PT REFUSED METHADONE. EXPLAINED THE RISKS AND BENEFITS, STILL NOTED W/ REFUSAL. PT STATED, "IF I DONT FEEL LIKE I NEED IT, I DONT WANT IT." HONORED PT'S DIGNITY AND THE RIGHT TO REFUSE. WILL CONTINUE TO MONITOR.
[2018-03-03] MEDS: FLUCONAZOLE (100 MG) 100 MG TABLET PO SCH (09:31)
[2018-03-03] MEDS: CEFEPIME 1 GM in IV D5W 50 ML IV SCH (09:31)
[2018-03-03] MEDS: PANTOPRAZOLE 40 MG TABLET.DR PO SCH (09:31)
[2018-03-03] MEDS: NYSTATIN (PYXIS) 500,000 UNIT/5 ML ORAL.SUSP PO SCH ×4 (09:32→22:00)
[2018-03-03] MEDS: ACYCLOVIR 800 MG TABLET PO SCH ×2 (09:32→16:00)
--- NOTE | 2018-03-03 10:05 | NUR ---
MS RN NOTES NOTIFIED PHARMACY RE: VANCO THAT LAB HAS NOT COME TO DRAW BLOOD YET FOR VANCO TROUGH.
[2018-03-03 10:22] LABS: *HIV-1 RNA BY PCR 188980 copies/mL (.); *HIV-1 log10 RNA 5.276 (.)
--- NOTE | 2018-03-03 11:30 | NUR ---
MS RN NOTES PT STATED NOBODY CAME IN FOR BLOOD DRAW. CALLED LAB AND STATED "SOMEONE IS ON THE WAY."
[2018-03-03] MEDS: TBO-FILGRASTIM 480 MCG/0.8 ML ML SQ SCH (15:55)
[2018-03-03 16:00] VITALS: BP 124/72
--- NOTE | 2018-03-03 16:07 | NUR ---
MS RN NOTES LAB IS AT BEDSIDE AT THIS FOR BLOOD DRAW.
[2018-03-03 16:44] LABS: CALCIUM, SERUM 7.7 mg/dL (8.5-10.1); CREATININE 1.1 mg/dL (0.6-1.3); MAGNESIUM 1.3 mg/dL (1.8-2.4); POTASSIUM 3.5 mmol/L (3.5-5.1)
[2018-03-03 17:24] LABS: EOSINOPHILS % (AUTO) 0.2 % (0.0-6.0); HEMATOCRIT 25 % (39-51); HEMOGLOBIN 8.2 g/dL (13.5-17.5); LYMPHOCYTES # (AUTO) 0.5 /CMM (0.8-4.8); LYMPHOCYTES % (AUTO) 13.1 % (20.0-44.0); MEAN CORPUSCULAR HEMOGLOBIN 27 PG (26.0-33.0); MEAN CORPUSCULAR HGB CONC 33 g/dl (31.0-36.0); MEAN CORPUSCULAR VOLUME 80 fL (80-96); MONOCYTES # (AUTO) 0.3 /CMM (0.1-1.30); MONOCYTES % (AUTO) 6.6 % (2.0-12.0); NEUTROPHILS # (AUTO) 3.4 /CMM (1.8-8.9); NEUTROPHILS % (AUTO) 80.1 % (43.0-81.0); PLATELET COUNT (AUTO) 83 /CMM (150-450); RDW COEFFICIENT OF VARIATION 15.6 (11.5-15.0); RED BLOOD CELL COUNT(AUTO) 3.07 MIL/uL (4.5-6.0); WHITE BLOOD COUNT (AUTO) 4.2 K/uL (4.3-11.0)
[2018-03-03] MEDS ORDERED: VANCOMYCIN 1.25 GM in IV D5W 500 ML IV ONE (17:30)
[2018-03-03] MEDS: AZITHROMYCIN 250 MG TABLET PO SCH (18:08)
[2018-03-03] MEDS: SULFAMETH/TRIMETH 800/160 MG 1 UDTAB TABLET PO SCH (18:08)
--- NOTE | 2018-03-03 18:40 | NUR ---
MS RN CLOSING NOTES ALL DUE MEDS GIVEN, NEEDS MET AND ANTICIPATED. PT REMAINS A/O X4, AFEBRILE. RESPIRATIONS ARE EVEN AND UNLABORED, NOT IN ANY ACUTE DISTRESS NOTED. IV SITE INTACT, FLUSHED AND NO INFILTRATION NOTED. VANCO INFUSING AT THIS TIME AND TOLERATING WELL.DRESSING KEPT CLEAN AND DRY. SAFETY MEASURES ARE IN PLACE. REMINDED PT TO USE CALL LIGHT WHEN ASSISTANCE IS NEEDED, CALL LIGHT IS LEFT WITHIN REACH. WILL ENDORSE TO NEXT SHIFT FOR CONTINUITY OF CARE.
--- NOTE | 2018-03-03 19:35 | NUR ---
RN OPENING NOTES RECEIVED REPORT FROM TIMWYMATTHEW OWEN. FOUND Pt AWAKE, RESTING IN BED. NO S/S OF ACUTE DISTRESS OR SOB NOTED. Pt IS A/OX4, VERBAL, ABLE TO MAKE NEEDS KNOWN. IV ACCESS ON LFA #18G, SL & RHAND #20G, IVF NS @100ML/HR. Pt IS ASKING TO GO DOWN FOR SMOKE, INFORMED HIM THAT HE NEEDS TO WAIT UNTIL A STAFF IS AVAILABLE TO ACCOMPANY HIM DOWN TO HAVE A SMOKE. SAFETY MEASURES IN PLACE. BED LOW, LOCKED, HOB ELEVATED, SIDE RAILS UP, CALL LIGHT AND BEDSIDE TABLE WITHIN REACH. WILL CONTINUE TO MONITOR Pt THROUGHOUT THE NIGHT FOR SAFETY.
--- NOTE | 2018-03-03 19:39 | NUR ---
RN NOTES SUPERINTENDENT AUTOMOTIVE TONY ACCOMPANIED Pt DOWN TO HAVE A SMOKE. Pt LEFT WITH MASK ON FOR SAFETY PRECAUTION.
[2018-03-03 20:00] VITALS: BP 106/63
[2018-03-03] MEDS: CEFEPIME 2 GM in IV D5W 100 ML IV SCH (21:59)
[2018-03-03] MEDS: ENOXAPARIN SODIUM 40 MG/0.4 ML DISP.SYRIN SQ SCH (22:01)
--- NOTE | 2018-03-03 22:09 | NUR ---
RN NOTES Pt CHANGED HIS MIND ABOUT LOVENOX AND REFUSED IT AFTER I ALREADY SCANNED & SAVED.
[2018-03-03] MEDS: TEMAZEPAM 15 MG CAPSULE PO PRN (23:07)
[2018-03-03] MEDS: LOPERAMIDE HCL (2 MG CAP) 2 MG CAPSULE PO PRN (23:07)
[2018-03-04] MEDS: VANCOMYCIN 0.75 GM in IV NS 0.9% 250 ML IV SCH ×2 (01:37→10:15)
[2018-03-04] MEDS: IV NS 0.9% 1,000 ML IV PRN (05:51)
--- NOTE | 2018-03-04 06:35 | NUR ---
RN CLOSING NOTES NO SIGNIFICANT CHANGES DURING THE NIGHT. Pt REMAINS IN STABLE CONDITION AT THIS TIME. Pt IS ASLEEP WITH UNLABORED AND EVEN RESPIRATIONS, WITH EQUAL CHEST RISE AND FALL. NO S/S OF ACUTE DISTRESS OR SOB NOTED DURING THE SHIFT. ALL NEEDS MET AND ATTENDED TO. SAFETY MEASURES IN PLACE. BED LOW, LOCKED, HOB ELEVATED, SIDE RAILS UP, CALL LIGHT AND BEDSIDE TABLE WITHIN REACH. WILL ENDORSE TO DAYSHIFT RN FOR Pt's JOEL.
--- NOTE | 2018-03-04 07:30 | NUR ---
MS RN OPENING NOTES RECEIVED PT LAYING IN BED WITH HOB ELEVATED, SLEEPING COMFORTABLY. PT IS EASILY AROUSABLE. RESPIRATIONS ARE EVEN AND UNLABORED, NOT IN ANY DISTRESS NOTED. IV INTACT, NO INFILTRATION NOTED. DRESSING KEPT CLEAN AND DRY. SAFETY MEASURES ARE IN PLACE. INSTRUCTED PT TO USE CALL LIGHT WHEN ASSISTANCE IS NEEDED, CALL LIGHT IS LEFT WITHIN REACH. WILL CONTINUE TO MONITOR THROUGHOUT SHIFT FOR CONTINUITY OF CARE.
[2018-03-04 08:00] VITALS: BP 103/61
[2018-03-04] MEDS: FLUCONAZOLE (100 MG) 100 MG TABLET PO SCH (08:58)
[2018-03-04] MEDS: NYSTATIN (PYXIS) 500,000 UNIT/5 ML ORAL.SUSP PO SCH ×4 (08:58→21:35)
[2018-03-04] MEDS: CEFEPIME 2 GM in IV D5W 100 ML IV SCH ×2 (08:58→20:59)
[2018-03-04] MEDS: PANTOPRAZOLE 40 MG TABLET.DR PO SCH (08:58)
[2018-03-04] MEDS: ACYCLOVIR 800 MG TABLET PO SCH ×2 (08:58→17:16)
[2018-03-04] MEDS: METHADONE HCL 10 MG TABLET PO SCH (08:59)
[2018-03-04 09:00] VITALS: BP 103/61
[2018-03-04 09:27] LABS: CALCIUM, SERUM 7.8 mg/dL (8.5-10.1); POTASSIUM 3.8 mmol/L (3.5-5.1)
[2018-03-04] MEDS: Magnesium 1GM/D5W 100ML PREMIX 100 ML IV SCH ×2 (12:11→13:24)
[2018-03-04 16:00] VITALS: BP 103/65
--- NOTE | 2018-03-04 17:03 | NUR ---
MS RN NOTES PT IS REFUSING BLOOD DRAW AT THIS TIME PHLEBOTIMIST HAD X1 ATTEMPT AND COULD NOT DRAW BLOOD. EXPLAINED TO THE PT THE NEED TO MAKE A SECOND ATTEMPT FOR THE BLOOD DRAW WHICH IS FOR THE VANCO TROUGH. PT STILL REFUSED AND REQUESTED FOR ANOTHER PHLEBOTIMIST. ANOTHER PHLEBOTMIST FROM ER WILL COME UP AND MAKE AN ATTEMPT TO DRAW BLOOD.
[2018-03-04] MEDS: AZITHROMYCIN 250 MG TABLET PO SCH (18:19)
[2018-03-04] MEDS: SULFAMETH/TRIMETH 800/160 MG 1 UDTAB TABLET PO SCH (18:19)
--- NOTE | 2018-03-04 18:26 | NUR ---
MS BARRIENTOS NOTES CALLED PHARMACY AND SPOKE WITH LUPE RE: VANCO TROUGH LEVEL AND TO HOLD 1700 DOSE. Addendum: 03/04/18 at 1831 by EMMA RICHEY RN PER LUPE, "WILL ADJUST THE DOSAGE."
--- NOTE | 2018-03-04 18:31 | NUR ---
MS RN CLOSING NOTES ALL DUE MEDS GIVEN, NEEDS MET AND ANTICIPATED. PT REMAINS A/O X4, AFEBRILE. RESPIRATIONS ARE EVEN AND UNLABORED, NOT IN ANY ACUTE DISTRESS NOTED. IV SITE INTACT, FLUSHED AND NO INFILTRATION NOTED.DRESSING KEPT CLEAN AND DRY. PT HAS BEEN COMPLIANT WITH MEDS AND SMOKING SCHEDULE. SAFETY MEASURES ARE IN PLACE. REMINDED PT TO USE CALL LIGHT WHEN ASSISTANCE IS NEEDED, CALL LIGHT IS LEFT WITHIN REACH. WILL ENDORSE TO NEXT SHIFT FOR CONTINUITY OF CARE.
[2018-03-04 20:00] VITALS: BP 118/73
--- NOTE | 2018-03-04 20:00 | NUR ---
MS JAMEE INITIAL NOTES PT SEEN IN BED AWAKE AND ALERT NOT IN REVERSED ISOLATION. NO SIGNS OF ANY DISCOMFORT AT THIS TIME. HE STATED HE WANTS TO SMOKE LATER AND SLEEP MEDICATION. I TOLD HIM I WILL CHECK HIS MEDICATION AND I WILL LET HIM KNOW. KEPT HIM COMFORTABLE AT ALL TIMES. PLACE CALL LIGHT AT REACH. WILL CONTINUE TO MONITOR.
[2018-03-04] MEDS: ENOXAPARIN SODIUM 40 MG/0.4 ML DISP.SYRIN SQ SCH (21:00)
--- NOTE | 2018-03-04 21:44 | NUR ---
MS DIRECTOR OF FLIGHT OPERATIONS NOTE PT REFUSED LOVENOX EVEN I EXPLAINED TO HIM THE PURPOSE OF IT. PLATELET 83. AWARE.
[2018-03-04] MEDS: ZOLPIDEM TARTRATE 5 MG TABLET PO PRN (22:04)
--- NOTE | 2018-03-04 22:05 | NUR ---
MS RESERVE OFFICER /NOTES AMBIEN GIVEN 5MG PO ORDERED PER PT REQUESTED. PT AWARE OF POSSIBLE SIDE EFFECT. WILL RE-ASSESS LATER.
[2018-03-04] MEDS: VANCOMYCIN 0.75 GM in IV D5W 250 ML IV SCH (22:32)
[2018-03-05] MEDS: ZOLPIDEM TARTRATE 5 MG TABLET PO PRN (00:15)
--- NOTE | 2018-03-05 00:15 | NUR ---
MS JAMEE NOTES. CHECKED PT HE'S IN BED BUT STILL AWAKE AND SAYING HE STILL NOT SLEEPY. ANOTHER AMBIEN GIVEN ORDERED.
--- NOTE | 2018-03-05 01:15 | NUR ---
NATIONAL ACCOUNT EXECUTIVE NOTES PT SLEEPING AT THIS TIME WITHOUT ANY ACUTE DISTRESS NOTED. KEPT HIM WARM AND COMFORTABLE AT ALL TIMES. WILL CONTINUE TO MONITOR. PLACE CALL LIGHT AT REACH.
[2018-03-05] MEDS: IV NS 0.9% 1,000 ML IV PRN (06:00)
--- NOTE | 2018-03-05 07:29 | NUR ---
MS MATERIAL COORDINATOR CLOSING NOTES PT WOKE UP AND WENT FOR SMOKE AND JUST CAME BACK WITHOUT ANY ACUTE DISTRESS NOTED. SLEPT WELL AND STABLE EITAN THE NIGHT. ALL DUE MEDS GIVEN AND ALL NEEDS MET. IVF NS INFUSING AT THIS TIME AT 100ML/HR ON HIS LEFT FOREARM AT 100ML/HR. KEPT HIM WARM AND COMFORTABLE AT ALL TIMES. WILL ENDORSE TO AM NURSE FOR CONTINUITY OF CARE.
[2018-03-05 07:57] LABS: CALCIUM, SERUM 7.8 mg/dL (8.5-10.1); MAGNESIUM 1.7 mg/dL (1.8-2.4); PHOSPHORUS 2.6 mg/dL (2.5-4.9); POTASSIUM 3.7 mmol/L (3.5-5.1)
[2018-03-05 08:00] VITALS: BP 110/72
[2018-03-05 08:08] LABS: HEMATOCRIT 26 % (39-51); HEMOGLOBIN 8.9 g/dL (13.5-17.5); MEAN CORPUSCULAR HEMOGLOBIN 27 PG (26.0-33.0); MEAN CORPUSCULAR HGB CONC 34 g/dl (31.0-36.0); MEAN CORPUSCULAR VOLUME 79 fL (80-96); PLATELET COUNT (AUTO) 116 /CMM (150-450); RDW COEFFICIENT OF VARIATION 16.7 (11.5-15.0); RED BLOOD CELL COUNT(AUTO) 3.34 MIL/uL (4.5-6.0); WHITE BLOOD COUNT (AUTO) 7.3 K/uL (4.3-11.0)
[2018-03-05] MEDS: ACYCLOVIR 800 MG TABLET PO SCH ×2 (08:08→17:02)
[2018-03-05] MEDS: PANTOPRAZOLE 40 MG TABLET.DR PO SCH (08:08)
[2018-03-05 08:09] LABS: BASOPHILS % (AUTO) 0.1 % (0.0-2.0); EOSINOPHILS % (AUTO) 0.2 % (0.0-6.0); LYMPHOCYTES % (AUTO) 10.7 % (20.0-44.0); MONOCYTES % (AUTO) 5.2 % (2.0-12.0); NEUTROPHILS % (AUTO) 83.8 % (43.0-81.0)
[2018-03-05] MEDS: FLUCONAZOLE (100 MG) 100 MG TABLET PO SCH (08:09)
[2018-03-05] MEDS: NYSTATIN (PYXIS) 500,000 UNIT/5 ML ORAL.SUSP PO SCH ×4 (08:09→17:00)
[2018-03-05] MEDS: CEFEPIME 2 GM in IV D5W 100 ML IV SCH ×2 (08:10→09:46)
[2018-03-05] MEDS: METHADONE HCL 10 MG TABLET PO SCH (09:00)
--- NOTE | 2018-03-05 10:22 | NUR ---
VERIFIED WITH DIPAK FROM PHARMACY TO CONTINUE GIVE CURRENT DOSE OF VANCO (0.75 GM Q 12 HOURS) VERBAL READBACK DONE
[2018-03-05] MEDS ORDERED: Magnesium 1GM/D5W 100ML PREMIX 100 ML IV SCH (10:30)
[2018-03-05] MEDS: VANCOMYCIN 0.75 GM in IV D5W 250 ML IV SCH (10:54)
--- NOTE | 2018-03-05 14:00 | NUR ---
PATIENT EDUCATED ON THE IMPORTANCE OF NOT HAVING SHARP OBJECTS AT THE BEDSIDE. PATIENT VERBALIZED UNDERSTANDING. NO SHARP OBJECTS SEEN AT BEDSIDE AND IN DRAWERS. PATIENT DENYING SI AND HI. VISUAL CHECKS Q 15 MINS BY MYSELF AND PRESS SUPERVISOR
--- NOTE | 2018-03-05 14:09 | NUR ---
PATIENT REFUSING IV INSERTION CURRENT IV ON LEFT FOREARM PATENT AND INTACT. PATIENT COMPLAINING OF SLIGHT BURNING SENSATION UPON FLUSHING. BENEFITS AND RISKS EXPLAINED AT LENGTH
[2018-03-05 16:00] VITALS: BP 125/74
--- NOTE | 2018-03-05 16:20 | NUR ---
SPOKE TO DIPAK FROM PHARMACY PER XANDER QUESADA TO GIVE NEW DOSE VANCOMYCIN 0.75 MG Q8HRS WITHOUT VANCO TROUGH TODAY
--- NOTE | 2018-03-05 17:21 | NUR ---
PATIENT REFUSED 1700 DOSE OF NYSTATIN - BENEFITS AND RISKS EXPLAINED. PATIENT STATES "ILL TAKE ONE LATER ANYWAY. I DONT WANT IT NOW "
[2018-03-05] MEDS ORDERED: VANCOMYCIN 0.75 GM in IV D5W 250 ML IV SCH (18:00)
--- NOTE | 2018-03-05 18:20 | NUR ---
AMA NOTES: 1800 - WHILE DOING HOURLY ROUNDING, PATIENT NOTED TO BE GETTING DRESSED. PATIENT STATED " I NEED TO CHECK OUT NOW." PATIENT EDUCATED TO WAIT FOR DISCHARGE ORDER BY BOTH MYSELF WELL CHARGE NURSE, CHARLES Zamora. PATIENT VERBALIZED UNDERSTANDING. HOWEVER, HE REFUSED. PATIENT EDUCATED THAT HE HAS NOT RECEIVED HIS SECOND MAGNESIUM BAG, EDUCATED ON CURRENT LAB VALUE, WELL THE RISKS OF HAVING LOW MAGNESIUM. PATIENT STILL REFUSED AND INSISTED THAT HE HAS TO LEAVE. PATIENT DID NOT OFFER ANY EXPLANATION. AMA FORMED SINGED. PATIENT VERBALIZED THE BENEFITS AND RISKS OF LEAVING AMA TO MYSELF AND LAWN MOWER REPAIRER CHARLES. DR TERESA LUJAN NOTIFIED. PATIENT REFUSED EXIST CARE INSTRUCTIONS. EDUCATED HIM VERBALLY ON THE IMPORTANCE OF FOLLOWING UP WITH PRIMARY HEALTH CARE PROVIDER WITHIN 1 WEEK. PATIENT ACCEPTED COPIES OF HIS LAB DRAW VALUES. PATIENT VERBALIZED UNDERSTANDING. PATIENT REFUSED TO SIGN EXIST CARE AND BELONGINGS LIST HE STATED " I'M IN A HURRY! I GOTTA GO NOW!" PATIENT VERBALIZED THAT HE HAS EVERYTHING INCLUDING HIS KNIFE. DENIED SI AND HI. PATIENT VERBALIZED THAT HE HAS HIS CLOTHES, WATCH, CIGARETTES , AND MONEY. PATIENT EDUCATED THAT HE HAS BELONGINGS INT THE [employer]. PATIENT STATED " I DONT HAVE TIME TO WAIT TO GET THAT. I DONT CARE, ITS JUST MARIJUANA"[employer] B[employer] SUPER[employer]OR HAILEY Fernandez NOTIFIED. PATIENT REFUSED SKIN PICTURES TO BE TAKEN. BENEFITS AND RISKS EXPLAINED WELL. IV LINE REMOVED, ID BANDS REMOVED. PATIENT AOX4- DENYING PAIN UPON LEAVING. AMBULATING IN A STEADY MANNER PATIENT ACCOMPANIED TO TO HOSPITAL EXIT BY 2 STAFF MEMBERS.
--- NOTE | 2018-03-05 18:20 | NUR ---
AMA NOTES: 1800 - WHILE DOING HOURLY ROUNDING, PATIENT NOTED TO BE GETTING DRESSED. PATIENT STATED " I NEED TO CHECK OUT NOW." PATIENT EDUCATED TO WAIT FOR DISCHARGE ORDER BY BOTH MYSELF WELL CHARGE NURSE, CHARLES Zamora. PATIENT VERBALIZED UNDERSTANDING. HOWEVER, HE REFUSED. PATIENT EDUCATED THAT HE HAS NOT RECEIVED HIS SECOND MAGNESIUM BAG, EDUCATED ON CURRENT LAB VALUE, WELL THE RISKS OF HAVING LOW MAGNESIUM. PATIENT STILL REFUSED AND INSISTED THAT HE HAS TO LEAVE. PATIENT DID NOT OFFER ANY EXPLANATION. AMA FORMED SINGED. PATIENT VERBALIZED THE BENEFITS AND RISKS OF LEAVING AMA TO MYSELF AND TOOL STORAGE ATTENDANT CHARLES. DR TERESA LUJAN NOTIFIED. PATIENT REFUSED EXIST CARE INSTRUCTIONS. EDUCATED HIM VERBALLY ON THE IMPORTANCE OF FOLLOWING UP WITH PRIMARY HEALTH CARE PROVIDER WITHIN 1 WEEK. PATIENT ACCEPTED COPIES OF HIS LAB DRAW VALUES. PATIENT VERBALIZED UNDERSTANDING. PATIENT REFUSED TO SIGN EXIST CARE AND BELONGINGS LIST HE STATED " I'M IN A HURRY! I GOTTA GO NOW!" PATIENT VERBALIZED THAT HE HAS EVERYTHING INCLUDING HIS KNIFE. DENIED SI AND HI. PATIENT VERBALIZED THAT HE HAS HIS CLOTHES, WATCH, CIGARETTES , AND MONEY. PATIENT EDUCATED THAT HE HAS BELONGINGS INT THE [employer]. PATIENT STATED " I DONT HAVE TIME TO WAIT TO GET THAT. I DONT CARE, ITS JUST MARIJUANA"BREWERY PUMPER HAILEY Fernandez NOTIFIED. PATIENT REFUSED SKIN PICTURES TO BE TAKEN. BENEFITS AND RISKS EXPLAINED WELL. IV LINE REMOVED, ID BANDS REMOVED. PATIENT AOX4- DENYING PAIN UPON LEAVING. AMBULATING IN A STEADY MANNER PATIENT ACCOMPANIED TO TO HOSPITAL EXIT BY 2 STAFF MEMBERS. PATIENT REFUSED BUS TOKENS, STATED HE DID NOT NEED A RIDE
[2018-03-07 18:14] LABS: *NEUTROPHILS, ABSOLUTE 0.3
== END 2018-03-05 18:00 | disposition left against medical advice (07) | DRG 892 ==
LOC: ER 16:32 → TELE 20:08 → MED 02-28 12:51
PROVIDERS: ADMIT Nurse Practitioner Acute Care; ATTEND Nurse Practitioner Acute Care
DX: A41.9 Sepsis, unspecified organism (principal); B20 Human immunodeficiency virus [HIV] disease; N17.0 Acute kidney failure with tubular necrosis; R65.20 Severe sepsis without septic shock; E46 Unspecified protein-calorie malnutrition; B37.0 Candidal stomatitis; F11.288 Opioid dependence with other opioid-induced disorder; E87.1 Hypo-osmolality and hyponatremia; B37.81 Candidal esophagitis; E88.09 Other disorders of plasma-protein metabolism, not elsewhere classified; F10.10 Alcohol abuse, uncomplicated; F17.210 Nicotine dependence, cigarettes, uncomplicated; J45.909 Unspecified asthma, uncomplicated; Z59.0 Homelessness; E87.6 Hypokalemia; E86.1 Hypovolemia; Z91.19 Patient's noncompliance with other medical treatment and regimen; F19.10 Other psychoactive substance abuse, uncomplicated; Z68.21 Body mass index [BMI] 21.0-21.9, adult; K52.1 Toxic gastroenteritis and colitis; I07.8 Other rheumatic tricuspid valve diseases
CPT/HCPCS: 36415; 71045-TC; 80048-TC; 80076-TC; 80202-TC; 83605-TC; 83735-TC; 83880; 84100-TC; 84484-TC; 85025-TC; 85730-TC; 86360; 87040-TC; 87081-TC; 87086-TC; 87536; 93307-TC; A4216; A6402; J0692; J0696; J1447; J1650; J2270; J2405; J2543; J3370; J3475; J7030; J7050; J7060; Q0163; Z7610

== ENCOUNTER 2018-05-19 23:02 | Inpatient (IN) | payer MEDICAID, OTHER ==
[~2018-05-19] VITALS: Ht 167.6 cm; Wt 62.6 kg
[2018-05-19] MEDS ORDERED: IV NS 0.9% 1,000 ML BAG IV ONE (23:30)
[2018-05-19] MEDS ORDERED: ONDANSETRON 4 MG TAB.RAPDIS SL ONE (23:30)
[2018-05-19] MEDS ORDERED: ONDANSETRON 4 MG TAB.RAPDIS ONE (23:51)
[2018-05-20] LABS: HEMATOCRIT 27 % (39-51); HEMOGLOBIN 8.6 g/dL (13.5-17.5); LYMPHOCYTES # (AUTO) 0.2 /CMM (0.8-4.8); LYMPHOCYTES % (AUTO) 2.6 % (20.0-44.0); MEAN CORPUSCULAR HGB CONC 33 g/dl (31.0-36.0); MEAN CORPUSCULAR VOLUME 81 fL (80-96); MONOCYTES # (AUTO) 0.5 /CMM (0.1-1.30); MONOCYTES % (AUTO) 7.4 % (2.0-12.0); PLATELET COUNT (AUTO) 52 /CMM (150-450); RDW COEFFICIENT OF VARIATION 17.6 (11.5-15.0); RED BLOOD CELL COUNT(AUTO) 3.25 MIL/uL (4.5-6.0); WHITE BLOOD COUNT (AUTO) 6.7 K/uL (4.3-11.0)
[2018-05-20 00:12] LABS: CALCIUM, SERUM 8.3 mg/dL (8.5-10.1); CARBON DIOXIDE 26 mmol/L (21-32); CHLORIDE 96 mmol/L (98-107); CREATININE 1.8 mg/dL (0.6-1.3); GLUCOSE 97 mg/dL (74-106); SODIUM SERUM 132 mmol/L (136-145); UREA NITROGEN, BLOOD 43 mg/dL (7-18)
[2018-05-20 00:14] LABS: INR 1.24 (0.87-1.13)
[2018-05-20 00:18] LABS: TROPONIN I < 0.017 ng/mL (0.00-0.056)
[2018-05-20 00:20] LABS: ALANINE AMINOTRANSFERASE 83 U/L (12-78); ALBUMIN 2.4 g/dL (3.4-5.0); ALKALINE PHOSPHATASE 158 U/L (46-116); ASPARTATE AMINOTRANSFERASE 211 U/L (15-37); BILIRUBIN,DIRECT 0.6 mg/dL (0.0-0.2); BILIRUBIN,TOTAL 1.2 mg/dL (0.2-1.0); LIPASE 174 U/L (73-393); TOTAL PROTEIN, SERUM 7.2 g/dL (6.4-8.2)
[2018-05-20 00:50] LABS: BAND % (MANUAL) 7 % (0.0-5.0); LYMPHOCYTES % (MANUAL) 3 % (16-48); MONOCYTES % (MANUAL) 4 % (0-11.0); NEUTROPHILS % (MANUAL) 86 (42-76)
[2018-05-20 02:00] VITALS: BP 95/57
[2018-05-20] MEDS ORDERED: ONDANSETRON HCL/PF 4 MG/2 ML VIAL IVP PRN (02:00)
[2018-05-20] MEDS ORDERED: MAGNESIUM HYDROXIDE 30 ML UDC PO PRN (02:00)
[2018-05-20] MEDS ORDERED: ACETAMINOPHEN 325 MG TABLET PO PRN (02:00)
[2018-05-20] MEDS ORDERED: Z GUARD REMEDY 2 OZ OINT TP PRN (02:00)
[2018-05-20] MEDS ORDERED: MAG HYDROX/AL HYDROX/SIMETH 30 ML UDC PO PRN (02:00)
[2018-05-20] MEDS ORDERED: HYDROCODONE/APAP 5/325MG 1 EACH TABLET PO PRN (02:00)
[2018-05-20] MEDS ORDERED: ZOLPIDEM TARTRATE 5 MG TABLET PO PRN (02:00)
[2018-05-20 02:43] VITALS: BP 95/57
[2018-05-20] MEDS: IV NS 0.9% 1,000 ML IV PRN ×2 (03:34→17:29)
[2018-05-20 08:00] VITALS: BP 92/46
[2018-05-20] MEDS: MORPHINE SULFATE INJ 4 MG/ML DISP.SYRIN IV PRN ×3 (11:04→22:24)
[2018-05-20 16:00] VITALS: BP 107/54
[2018-05-20] MEDS: ENSURE ENLIVE CHOC 237 ML CAN PO SCH (17:53)
[2018-05-20 20:00] VITALS: BP_SYST 81; BP_SYST 96; BP_DIAS 49; BP_DIAS 59
[2018-05-21 04:00] VITALS: BP 99/55
[2018-05-21 08:00] VITALS: BP 87/47
[2018-05-21] MEDS: MULTIVITAMINS,THERAGRAN 1 UDTAB TABLET PO SCH (08:35)
[2018-05-21] MEDS: MORPHINE SULFATE INJ 4 MG/ML DISP.SYRIN IV PRN ×3 (08:35→15:36)
[2018-05-21] MEDS: ENSURE ENLIVE CHOC 237 ML CAN PO SCH ×3 (08:46→17:00)
[2018-05-21] MEDS: IV NS 0.9% 1,000 ML IV PRN ×2 (08:50→22:58)
[2018-05-21] MEDS ORDERED: FEE PK DOSING 1 MIN EA MC ONE (13:25)
[2018-05-21] MEDS: FLUCONAZOLE (100 MG) 100 MG TABLET PO SCH (14:25)
[2018-05-21] MEDS: VANCOMYCIN 0.75 GM in IV D5W 250 ML IV SCH (15:41)
[2018-05-21 17:20] LABS: APPEARANCE,URINE CLEAR (CLEAR); BILIRUBIN,URINE 1+ (NEGATIVE); BLOOD, URINE NEGATIVE Ery/uL (NEGATIVE); COLOR,URINE YELLOW (YELLOW); KETONES,URINE NEGATIVE (NEGATIVE); LEUKOCYTE ESTERASE ,URINE NEGATIVE (NEGATIVE); NITRITE, URINE NEGATIVE (NEGATIVE); PH,URINE 6.5 (5.0-8.0); PROTEIN,URINE TRACE mg/dl (NEGATIVE); UGLUCOSE TRACE mg/dL (NEGATIVE); UROBILINOGEN,URINE >=8.0 EU/dL (0.2)
[2018-05-21 17:34] LABS: BACTERIA,URINE 1+ /HPF (None Seen); RBC,URINE 0-2 /HPF (0-2); SQUAMOUS EPITHELIAL CELL,UR 0-2 /HPF (None Seen)
[2018-05-21] MEDS: IBUPROFEN 400 MG TABLET PO PRN (17:59)
[2018-05-21] MEDS: PIPERACILLIN /TAZOBACTAM 3.375 G in IV D5W 50 ML IV SCH ×2 (17:59→23:01)
[2018-05-21 20:00] VITALS: BP 93/53
[2018-05-21] MEDS: SULFAMETH/TRIMETH 800/160 MG 1 UDTAB TABLET PO SCH (21:34)
[2018-05-21 23:00] VITALS: BP 76/43
[2018-05-21] MEDS ORDERED: IV NS 0.9% 1,000 ML IV ONE (23:30)
[2018-05-22 00:45] VITALS: BP 89/43
[2018-05-22] MEDS: VANCOMYCIN 0.75 GM in IV D5W 250 ML IV SCH ×2 (02:26→14:13)
[2018-05-22] MEDS: PIPERACILLIN /TAZOBACTAM 3.375 G in IV D5W 50 ML IV SCH ×3 (05:14→17:06)
[2018-05-22] MEDS ORDERED: IV NS 0.9% 1,000 ML IV ONE (06:30)
[2018-05-22] MEDS: ENSURE ENLIVE CHOC 237 ML CAN PO SCH ×3 (08:20→17:05)
[2018-05-22 08:25] VITALS: BP 80/52
[2018-05-22] MEDS: SULFAMETH/TRIMETH 800/160 MG 1 UDTAB TABLET PO SCH ×2 (08:35→20:19)
[2018-05-22] MEDS: FLUCONAZOLE (100 MG) 100 MG TABLET PO SCH (08:35)
[2018-05-22] MEDS: MULTIVITAMINS,THERAGRAN 1 UDTAB TABLET PO SCH (08:35)
[2018-05-22 16:00] VITALS: BP 93/55
[2018-05-22] MEDS: IV NS 0.9% 1,000 ML IV PRN (17:03)
[2018-05-22 20:00] VITALS: BP 95/52
[2018-05-22 23:00] VITALS: BP 100/63
[2018-05-22] MEDS: MORPHINE SULFATE INJ 4 MG/ML DISP.SYRIN IV PRN (23:04)
[2018-05-23] MEDS: PIPERACILLIN /TAZOBACTAM 3.375 G in IV D5W 50 ML IV SCH ×5 (00:45→23:10)
[2018-05-23] MEDS: VANCOMYCIN 0.75 GM in IV D5W 250 ML IV SCH (01:44)
[2018-05-23] MEDS: IV NS 0.9% 1,000 ML IV PRN ×2 (03:57→23:10)
[2018-05-23 04:00] VITALS: BP 95/55
[2018-05-23 06:30] VITALS: BP 100/59
[2018-05-23] MEDS: MORPHINE SULFATE INJ 4 MG/ML DISP.SYRIN IV PRN ×5 (06:48→23:12)
[2018-05-23 07:30] LABS: CALCIUM, SERUM 7.4 mg/dL (8.5-10.1); CREATININE 0.8 mg/dL (0.6-1.3); MAGNESIUM 1.3 mg/dL (1.8-2.4); PHOSPHORUS 3.4 mg/dL (2.5-4.9); POTASSIUM 3.4 mmol/L (3.5-5.1)
[2018-05-23 07:31] LABS: CHOLESTEROL 50 mg/dL (<200); HDL CHOLESTEROL 12 mg/dL (40-60); LDL 30 mg/dL (0-99); TRIGLYCERIDES 68 mg/dL (30-150)
[2018-05-23 07:38] LABS: EOSINOPHILS % (AUTO) 0.5 % (0.0-6.0); HEMATOCRIT 23 % (39-51); HEMOGLOBIN 7.4 g/dL (13.5-17.5); LYMPHOCYTES # (AUTO) 0.3 /CMM (0.8-4.8); LYMPHOCYTES % (AUTO) 4.9 % (20.0-44.0); MEAN CORPUSCULAR HGB CONC 32 g/dl (31.0-36.0); MEAN CORPUSCULAR VOLUME 81 fL (80-96); MONOCYTES # (AUTO) 0.3 /CMM (0.1-1.30); MONOCYTES % (AUTO) 5.2 % (2.0-12.0); NEUTROPHILS # (AUTO) 5.5 /CMM (1.8-8.9); NEUTROPHILS % (AUTO) 89.4 % (43.0-81.0); PLATELET COUNT (AUTO) 69 /CMM (150-450); RED BLOOD CELL COUNT(AUTO) 2.82 MIL/uL (4.5-6.0); THYROID STIMULATING HORMONE 2.678 uIU/mL (0.358-3.74); WHITE BLOOD COUNT (AUTO) 6.2 K/uL (4.3-11.0)
[2018-05-23 08:13] LABS: NEUTROPHILS % (MANUAL) 89 (42-76)
[2018-05-23 08:14] LABS: LYMPHOCYTES % (MANUAL) 5 % (16-48); MONOCYTES % (MANUAL) 6 % (0-11.0)
[2018-05-23 08:19] VITALS: BP 84/49
[2018-05-23] MEDS: MULTIVITAMINS,THERAGRAN 1 UDTAB TABLET PO SCH (09:34)
[2018-05-23] MEDS: SULFAMETH/TRIMETH 800/160 MG 1 UDTAB TABLET PO SCH ×2 (09:34→20:07)
[2018-05-23] MEDS: FLUCONAZOLE (100 MG) 100 MG TABLET PO SCH (09:35)
[2018-05-23] MEDS: ENSURE ENLIVE CHOC 237 ML CAN PO SCH ×3 (09:35→16:23)
[2018-05-23] MEDS ORDERED: POTASSIUM CHLORIDE 20 MEQ TAB.PRT.SR PO SCH (11:00)
[2018-05-23] MEDS: Magnesium 1GM/D5W 100ML PREMIX 100 ML IV SCH ×4 (11:14→14:42)
[2018-05-23 16:00] VITALS: BP 101/69
[2018-05-23] MEDS: VANCOMYCIN 1 GM in IV D5W 250 ML IV SCH (16:23)
[2018-05-23 20:00] VITALS: BP 113/61
[2018-05-24] MEDS: VANCOMYCIN 1 GM in IV D5W 250 ML IV SCH ×2 (02:17→14:56)
[2018-05-24] MEDS: MORPHINE SULFATE INJ 4 MG/ML DISP.SYRIN IV PRN ×7 (03:12→21:38)
[2018-05-24] MEDS: PIPERACILLIN /TAZOBACTAM 3.375 G in IV D5W 50 ML IV SCH ×4 (05:55→23:01)
[2018-05-24 08:00] VITALS: BP 107/61
[2018-05-24] MEDS: ENSURE ENLIVE CHOC 237 ML CAN PO SCH ×3 (08:08→17:35)
[2018-05-24 08:11] LABS: *BASOS 0 % (Not Estab.); *COMMENTS Note: (.); *EOS 1 % (Not Estab.); *HCT 22.1 % (37.5-51.0); *HGB 7.5 g/dL (13.0-17.7); *IMMATURE GRANULOCYTES 1 % (Not Estab.); *LYMPHOCYTES 6 % (Not Estab.); *LYMPHS, ABSOLUTE 0.4 x10E3/uL (0.7-3.1); *MCH 26.3 pg (26.6-33.0); *MCHC 33.9 g/dL (31.5-35.7); *MCV 78 fL (79-97); *MONOCYTES 6 % (Not Estab.); *MONOS, ABSOLUTE 0.3 x10E3/uL (0.1-0.9); *NEUTROPHILS 86 % (Not Estab.); *NEUTROPHILS, ABSOLUTE 5.3 x10E3/uL (1.4-7.0); *PLT 87 x10E3/uL (150-379); *RBC 2.85 x10E6/uL (4.14-5.80); *RDW 17.4 % (12.3-15.4)
[2018-05-24] MEDS: FLUCONAZOLE (100 MG) 100 MG TABLET PO SCH (08:55)
[2018-05-24] MEDS: SULFAMETH/TRIMETH 800/160 MG 1 UDTAB TABLET PO SCH ×2 (08:55→21:31)
[2018-05-24] MEDS: MULTIVITAMINS,THERAGRAN 1 UDTAB TABLET PO SCH (08:55)
[2018-05-24] MEDS: IV NS 0.9% 1,000 ML IV PRN (12:19)
[2018-05-24 16:00] VITALS: BP 104/56
[2018-05-24 16:18] LABS: *% CD 4 POS. LYMPH 2.5 % (30.8-58.5); *% CD 8 POS. LYMPH 66.5 % (12.0-35.5); *ABSOLUTE CD 4 HELPER 10 /uL (359-1519); *ABSOLUTE CD 8 SUPPRESSOR 266 /uL (109-897); *CD4/CD8 RATIO 0.04 (0.92-3.72)
[2018-05-24] MEDS: IBUPROFEN 400 MG TABLET PO PRN (17:44)
[2018-05-24 20:00] VITALS: BP 105/62
[2018-05-25] MEDS: IV NS 0.9% 1,000 ML IV PRN ×2 (01:18→17:51)
[2018-05-25] MEDS: VANCOMYCIN 1 GM in IV D5W 250 ML IV SCH ×2 (02:36→18:33)
[2018-05-25] MEDS: MORPHINE SULFATE INJ 4 MG/ML DISP.SYRIN IV PRN ×6 (02:47→22:23)
[2018-05-25] MEDS: PIPERACILLIN /TAZOBACTAM 3.375 G in IV D5W 50 ML IV SCH ×4 (05:21→23:09)
[2018-05-25 06:30] LABS: BASOPHILS % (AUTO) 0.1 % (0.0-2.0); LYMPHOCYTES # (AUTO) 0.3 /CMM (0.8-4.8); LYMPHOCYTES % (AUTO) 6.7 % (20.0-44.0); MEAN CORPUSCULAR HGB CONC 32 g/dl (31.0-36.0); MEAN CORPUSCULAR VOLUME 83 fL (80-96); MONOCYTES # (AUTO) 0.3 /CMM (0.1-1.30); MONOCYTES % (AUTO) 6.6 % (2.0-12.0); NEUTROPHILS # (AUTO) 4.3 /CMM (1.8-8.9); NEUTROPHILS % (AUTO) 86.6 % (43.0-81.0); PLATELET COUNT (AUTO) 117 /CMM (150-450); RDW COEFFICIENT OF VARIATION 18.4 (11.5-15.0); RED BLOOD CELL COUNT(AUTO) 2.35 MIL/uL (4.5-6.0)
[2018-05-25 06:34] LABS: CALCIUM, SERUM 7.5 mg/dL (8.5-10.1); CREATININE 0.9 mg/dL (0.6-1.3); POTASSIUM 4.5 mmol/L (3.5-5.1)
[2018-05-25 06:53] LABS: ALBUMIN 1.5 g/dL (3.4-5.0); BILIRUBIN,DIRECT 0.2 mg/dL (0.0-0.2); BILIRUBIN,TOTAL 0.4 mg/dL (0.2-1.0); HEMATOCRIT 20 % (39-51); HEMOGLOBIN 6.2 g/dL (13.5-17.5); TOTAL PROTEIN, SERUM 5.7 g/dL (6.4-8.2)
[2018-05-25 09:24] LABS: BAND % (MANUAL) 1 % (0.0-5.0); LYMPHOCYTES % (MANUAL) 3 % (16-48); MONOCYTES % (MANUAL) 8 % (0-11.0); NEUTROPHILS % (MANUAL) 88 (42-76)
[2018-05-25] MEDS: FLUCONAZOLE (100 MG) 100 MG TABLET PO SCH (09:43)
[2018-05-25] MEDS: SULFAMETH/TRIMETH 800/160 MG 1 UDTAB TABLET PO SCH ×3 (09:43→21:03)
[2018-05-25] MEDS: MULTIVITAMINS,THERAGRAN 1 UDTAB TABLET PO SCH (09:43)
[2018-05-25] MEDS: ENSURE ENLIVE CHOC 237 ML CAN PO SCH ×3 (09:59→17:00)
[2018-05-25 14:44] VITALS: BP 95/65
[2018-05-25 15:05] VITALS: BP 98/69
[2018-05-25 15:39] VITALS: BP 91/61
[2018-05-25 16:00] VITALS: BP 105/64
[2018-05-25 20:00] VITALS: BP 105/47
[2018-05-25 22:49] LABS: APPEARANCE,URINE CLEAR (CLEAR); BILIRUBIN,URINE NEGATIVE (NEGATIVE); BLOOD, URINE NEGATIVE Ery/uL (NEGATIVE); COLOR,URINE YELLOW (YELLOW); KETONES,URINE NEGATIVE (NEGATIVE); LEUKOCYTE ESTERASE ,URINE NEGATIVE (NEGATIVE); NITRITE, URINE NEGATIVE (NEGATIVE); PROTEIN,URINE NEGATIVE (NEGATIVE); UGLUCOSE NEGATIVE (NEGATIVE); UROBILINOGEN,URINE 0.2 EU/dL (0.2)
[2018-05-26] MEDS: VANCOMYCIN 1 GM in IV D5W 250 ML IV SCH ×3 (01:22→18:18)
[2018-05-26] MEDS: MORPHINE SULFATE INJ 4 MG/ML DISP.SYRIN IV PRN ×8 (01:23→23:32)
[2018-05-26] MEDS: PIPERACILLIN /TAZOBACTAM 3.375 G in IV D5W 50 ML IV SCH ×4 (05:19→23:31)
[2018-05-26] MEDS: IV NS 0.9% 1,000 ML IV PRN ×2 (05:43→23:32)
[2018-05-26 06:44] LABS: CALCIUM, SERUM 7.8 mg/dL (8.5-10.1); CREATININE 0.9 mg/dL (0.6-1.3); POTASSIUM 4.7 mmol/L (3.5-5.1)
[2018-05-26 08:00] VITALS: BP 100/61
[2018-05-26] MEDS: ENSURE ENLIVE CHOC 237 ML CAN PO SCH ×3 (08:34→17:35)
[2018-05-26] MEDS: MULTIVITAMINS,THERAGRAN 1 UDTAB TABLET PO SCH (08:34)
[2018-05-26] MEDS: FLUCONAZOLE (100 MG) 100 MG TABLET PO SCH (08:34)
[2018-05-26 08:59] LABS: EOSINOPHILS % (AUTO) 0.1 % (0.0-6.0); HEMATOCRIT 25 % (39-51); HEMOGLOBIN 7.8 g/dL (13.5-17.5); LYMPHOCYTES # (AUTO) 0.6 /CMM (0.8-4.8); LYMPHOCYTES % (AUTO) 9.4 % (20.0-44.0); MEAN CORPUSCULAR HGB CONC 31 g/dl (31.0-36.0); MEAN CORPUSCULAR VOLUME 84 fL (80-96); MONOCYTES # (AUTO) 0.3 /CMM (0.1-1.30); MONOCYTES % (AUTO) 4.6 % (2.0-12.0); NEUTROPHILS # (AUTO) 5.2 /CMM (1.8-8.9); NEUTROPHILS % (AUTO) 85.9 % (43.0-81.0); PLATELET COUNT (AUTO) 135 /CMM (150-450); RDW COEFFICIENT OF VARIATION 18.2 (11.5-15.0); RED BLOOD CELL COUNT(AUTO) 2.94 MIL/uL (4.5-6.0)
[2018-05-26 16:00] VITALS: BP 97/72
[2018-05-26 18:31] LABS: OCCULT BLOOD STOOL NEGATIVE (NEGATIVE)
[2018-05-26 20:00] VITALS: BP 103/60
[2018-05-26 20:11] VITALS: BP 103/60
[2018-05-26] MEDS: SULFAMETH/TRIMETH 800/160 MG 1 UDTAB TABLET PO SCH (20:35)
[2018-05-27] MEDS: VANCOMYCIN 1 GM in IV D5W 250 ML IV SCH ×2 (02:29→10:00)
[2018-05-27] MEDS: MORPHINE SULFATE INJ 4 MG/ML DISP.SYRIN IV PRN ×4 (02:30→19:46)
[2018-05-27] MEDS: PIPERACILLIN /TAZOBACTAM 3.375 G in IV D5W 50 ML IV SCH ×4 (05:54→23:46)
[2018-05-27 08:00] VITALS: BP 96/51
[2018-05-27] MEDS ORDERED: MORPHINE SULFATE INJ 4 MG/ML DISP.SYRIN IV PRN (08:30)
[2018-05-27 08:32] LABS: CALCIUM, SERUM 7.9 mg/dL (8.5-10.1); CREATININE 0.8 mg/dL (0.6-1.3); POTASSIUM 4.5 mmol/L (3.5-5.1)
[2018-05-27] MEDS: MULTIVITAMINS,THERAGRAN 1 UDTAB TABLET PO SCH (08:57)
[2018-05-27] MEDS: SULFAMETH/TRIMETH 800/160 MG 1 UDTAB TABLET PO SCH ×2 (08:58→20:50)
[2018-05-27] MEDS: FLUCONAZOLE (100 MG) 100 MG TABLET PO SCH (08:58)
[2018-05-27] MEDS: ENSURE ENLIVE CHOC 237 ML CAN PO SCH ×3 (10:26→16:04)
[2018-05-27] MEDS: IV NS 0.9% 1,000 ML IV PRN ×2 (13:29→23:45)
[2018-05-27 16:00] VITALS: BP 91/60
[2018-05-27 20:00] VITALS: BP 104/54
[2018-05-27] MEDS: VANCOMYCIN 0.75 GM in IV D5W 250 ML IV SCH (20:47)
[2018-05-28] MEDS: MORPHINE SULFATE INJ 4 MG/ML DISP.SYRIN IV PRN ×4 (01:55→22:12)
[2018-05-28] MEDS: VANCOMYCIN 0.75 GM in IV D5W 250 ML IV SCH (04:48)
[2018-05-28] MEDS: PIPERACILLIN /TAZOBACTAM 3.375 G in IV D5W 50 ML IV SCH ×4 (05:50→23:48)
[2018-05-28 08:00] VITALS: BP 84/56
[2018-05-28] MEDS: ENSURE ENLIVE CHOC 237 ML CAN PO SCH ×3 (08:06→16:38)
[2018-05-28] MEDS: FLUCONAZOLE (100 MG) 100 MG TABLET PO SCH (08:26)
[2018-05-28] MEDS: SULFAMETH/TRIMETH 800/160 MG 1 UDTAB TABLET PO SCH ×2 (08:26→20:56)
[2018-05-28] MEDS: MULTIVITAMINS,THERAGRAN 1 UDTAB TABLET PO SCH (08:26)
[2018-05-28 10:08] LABS: QFT MITOGEN VALUE 0.51 IU/mL (.); QFT TB AG VALUE 0.02 IU/mL (.); QFT TB GOLD Indeterminate (Negative)
[2018-05-28] MEDS: TRAMADOL HCL 50 MG TABLET PO PRN (11:47)
[2018-05-28] MEDS: IV NS 0.9% 1,000 ML IV PRN (15:46)
[2018-05-28 16:00] VITALS: BP 84/46
[2018-05-28 20:55] LABS: CALCIUM, SERUM 7.9 mg/dL (8.5-10.1); CREATININE 0.9 mg/dL (0.6-1.3); POTASSIUM 4.6 mmol/L (3.5-5.1)
[2018-05-28 21:01] VITALS: BP 98/51
[2018-05-29] MEDS: IV NS 0.9% 1,000 ML IV PRN (03:55)
[2018-05-29] MEDS: MORPHINE SULFATE INJ 4 MG/ML DISP.SYRIN IV PRN ×3 (04:58→18:02)
[2018-05-29 05:42] LABS: CALCIUM, SERUM 8.1 mg/dL (8.5-10.1); CREATININE 0.9 mg/dL (0.6-1.3); POTASSIUM 5.1 mmol/L (3.5-5.1)
[2018-05-29] MEDS: PIPERACILLIN /TAZOBACTAM 3.375 G in IV D5W 50 ML IV SCH ×3 (05:57→18:03)
[2018-05-29 08:00] VITALS: BP 81/62
[2018-05-29] MEDS: MULTIVITAMINS,THERAGRAN 1 UDTAB TABLET PO SCH (08:42)
[2018-05-29] MEDS: SULFAMETH/TRIMETH 800/160 MG 1 UDTAB TABLET PO SCH ×2 (08:42→20:25)
[2018-05-29] MEDS: ENSURE ENLIVE CHOC 237 ML CAN PO SCH ×3 (09:14→16:56)
[2018-05-29] MEDS: BACITRACIN/POLYMYXIN B 15 GM TUBE TP SCH (11:51)
[2018-05-29] MEDS ORDERED: SODIUM CL FOR INHALATION 3% 15 ML VIAL.NEB IH ONE (12:00)
[2018-05-29 16:00] VITALS: BP 94/40
[2018-05-29 16:12] LABS: CMV, IgM <30.0 AU/mL (0.0-29.9)
[2018-05-29 20:00] VITALS: BP 95/58
[2018-05-29] MEDS: IBUPROFEN 400 MG TABLET PO PRN (20:25)
[2018-05-29] MEDS ORDERED: VANCOMYCIN 1 GM in IV D5W 250ml IV ONE (21:30)
[2018-05-29] MEDS ORDERED: VANCOMYCIN 1 GM VIAL ONE (22:55)
[2018-05-30] MEDS: PIPERACILLIN /TAZOBACTAM 3.375 G in IV D5W 50 ML IV SCH ×5 (00:18→23:00)
[2018-05-30] MEDS: MORPHINE SULFATE INJ 4 MG/ML DISP.SYRIN IV PRN ×4 (00:31→21:11)
[2018-05-30 01:31] LABS: APPEARANCE,URINE CLEAR (CLEAR); BILIRUBIN,URINE NEGATIVE (NEGATIVE); BLOOD, URINE NEGATIVE Ery/uL (NEGATIVE); COLOR,URINE YELLOW (YELLOW); KETONES,URINE NEGATIVE (NEGATIVE); LEUKOCYTE ESTERASE ,URINE NEGATIVE (NEGATIVE); NITRITE, URINE NEGATIVE (NEGATIVE); PROTEIN,URINE NEGATIVE (NEGATIVE); UGLUCOSE NEGATIVE (NEGATIVE); UROBILINOGEN,URINE 0.2 EU/dL (0.2)
[2018-05-30] MEDS: IV NS 0.9% 1,000 ML IV PRN ×2 (06:46→20:15)
[2018-05-30 08:00] VITALS: BP 84/55
[2018-05-30] MEDS ORDERED: FEE PK DOSING 1 MIN EA MC ONE (08:05)
[2018-05-30] MEDS: ENSURE ENLIVE CHOC 237 ML CAN PO SCH ×3 (08:47→17:29)
[2018-05-30] MEDS: BACITRACIN/POLYMYXIN B 15 GM TUBE TP SCH (09:00)
[2018-05-30] MEDS: VANCOMYCIN 0.75 GM in IV D5W 250 ML IV SCH ×2 (09:19→18:09)
[2018-05-30] MEDS: SULFAMETH/TRIMETH 800/160 MG 1 UDTAB TABLET PO SCH ×2 (09:20→20:14)
[2018-05-30] MEDS: MULTIVITAMINS,THERAGRAN 1 UDTAB TABLET PO SCH (09:20)
[2018-05-30 16:00] VITALS: BP 87/59
[2018-05-30 20:00] VITALS: BP 96/47
[2018-05-31] MEDS: VANCOMYCIN 0.75 GM in IV D5W 250 ML IV SCH ×4 (00:14→19:23)
[2018-05-31 03:00] VITALS: BP 123/34
[2018-05-31] MEDS: MORPHINE SULFATE INJ 4 MG/ML DISP.SYRIN IV PRN ×4 (03:17→23:28)
[2018-05-31] MEDS: PIPERACILLIN /TAZOBACTAM 3.375 G in IV D5W 50 ML IV SCH ×3 (05:07→17:10)
[2018-05-31 08:00] VITALS: BP 97/67
[2018-05-31 09:02] LABS: CALCIUM, SERUM 7.8 mg/dL (8.5-10.1); CREATININE 0.9 mg/dL (0.6-1.3); POTASSIUM 4.5 mmol/L (3.5-5.1)
[2018-05-31] MEDS: ENSURE ENLIVE CHOC 237 ML CAN PO SCH ×3 (09:09→17:10)
[2018-05-31] MEDS: SULFAMETH/TRIMETH 800/160 MG 1 UDTAB TABLET PO SCH ×2 (09:10→20:20)
[2018-05-31] MEDS: MULTIVITAMINS,THERAGRAN 1 UDTAB TABLET PO SCH (09:10)
[2018-05-31] MEDS: IV NS 0.9% 1,000 ML IV PRN (09:12)
[2018-05-31] MEDS: BACITRACIN/POLYMYXIN B 15 GM TUBE TP SCH (09:13)
[2018-05-31] MEDS: TRAMADOL HCL 50 MG TABLET PO PRN (13:11)
[2018-05-31 16:00] VITALS: BP 97/52
[2018-05-31 18:29] LABS: BASOPHILS % (AUTO) 0.1 % (0.0-2.0); EOSINOPHILS % (AUTO) 0.1 % (0.0-6.0); HEMATOCRIT 24 % (39-51); HEMOGLOBIN 7.7 g/dL (13.5-17.5); LYMPHOCYTES # (AUTO) 0.4 /CMM (0.8-4.8); LYMPHOCYTES % (AUTO) 12.3 % (20.0-44.0); MEAN CORPUSCULAR HGB CONC 33 g/dl (31.0-36.0); MEAN CORPUSCULAR VOLUME 83 fL (80-96); MONOCYTES # (AUTO) 0.2 /CMM (0.1-1.30); MONOCYTES % (AUTO) 7.2 % (2.0-12.0); NEUTROPHILS # (AUTO) 2.6 /CMM (1.8-8.9); NEUTROPHILS % (AUTO) 80.3 % (43.0-81.0); PLATELET COUNT (AUTO) 102 /CMM (150-450); RDW COEFFICIENT OF VARIATION 18.9 (11.5-15.0); RED BLOOD CELL COUNT(AUTO) 2.86 MIL/uL (4.5-6.0); WHITE BLOOD COUNT (AUTO) 3.3 K/uL (4.3-11.0)
[2018-05-31 19:03] LABS: CREATININE 0.8 mg/dL (0.6-1.3); MAGNESIUM 1.5 mg/dL (1.8-2.4); PHOSPHORUS 2.9 mg/dL (2.5-4.9); POTASSIUM 4.5 mmol/L (3.5-5.1)
[2018-05-31 20:00] VITALS: BP 115/60
[2018-05-31] MEDS ORDERED: Magnesium 1GM/D5W 100ML PREMIX PIGGYBACK IV ONE (22:30)
[2018-05-31] MEDS ORDERED: MIRTAZAPINE 15 MG TABLET PO SCH (22:30)
[2018-06-01] MEDS: PIPERACILLIN /TAZOBACTAM 3.375 G in IV D5W 50 ML IV SCH ×3 (00:25→11:41)
[2018-06-01] MEDS: IV NS 0.9% 1,000 ML IV PRN ×2 (00:57→18:00)
[2018-06-01] MEDS: VANCOMYCIN 0.75 GM in IV D5W 250 ML IV SCH (05:41)
[2018-06-01] MEDS: MORPHINE SULFATE INJ 4 MG/ML DISP.SYRIN IV PRN ×3 (05:42→17:39)
[2018-06-01 05:45] VITALS: BP 104/65
[2018-06-01 07:40] LABS: CALCIUM, SERUM 7.7 mg/dL (8.5-10.1); CREATININE 0.8 mg/dL (0.6-1.3); POTASSIUM 4.5 mmol/L (3.5-5.1)
[2018-06-01 08:00] VITALS: BP 84/63
[2018-06-01] MEDS: SULFAMETH/TRIMETH 800/160 MG 1 UDTAB TABLET PO SCH ×2 (08:50→21:54)
[2018-06-01] MEDS: ENSURE ENLIVE CHOC 237 ML CAN PO SCH ×3 (08:50→17:37)
[2018-06-01] MEDS: MULTIVITAMINS,THERAGRAN 1 UDTAB TABLET PO SCH (08:50)
[2018-06-01] MEDS: BACITRACIN/POLYMYXIN B 15 GM TUBE TP SCH (09:01)
[2018-06-01 16:00] VITALS: BP 89/50
[2018-06-01] MEDS: IBUPROFEN 400 MG TABLET PO PRN (17:36)
[2018-06-01 20:00] VITALS: BP 95/48
[2018-06-01] MEDS: MEROPENEM 1 G in IV NS 0.9% 100 ML IV SCH (20:34)
[2018-06-01] MEDS: MIRTAZAPINE 15 MG TABLET PO SCH (21:54)
[2018-06-02] MEDS: MORPHINE SULFATE INJ 4 MG/ML DISP.SYRIN IV PRN ×4 (00:11→18:45)
[2018-06-02] MEDS: MEROPENEM 1 G in IV NS 0.9% 100 ML IV SCH ×3 (04:45→21:33)
[2018-06-02] MEDS: IV NS 0.9% 1,000 ML IV PRN (07:01)
[2018-06-02 08:00] VITALS: BP 93/57
[2018-06-02] MEDS: ENSURE ENLIVE CHOC 237 ML CAN PO SCH ×3 (08:55→16:02)
[2018-06-02] MEDS: SULFAMETH/TRIMETH 800/160 MG 1 UDTAB TABLET PO SCH ×2 (08:55→21:33)
[2018-06-02] MEDS: MULTIVITAMINS,THERAGRAN 1 UDTAB TABLET PO SCH (08:55)
[2018-06-02] MEDS: BACITRACIN/POLYMYXIN B 15 GM TUBE TP SCH (09:02)
[2018-06-02 16:00] VITALS: BP 87/61
[2018-06-02 20:00] VITALS: BP 97/55
[2018-06-02] MEDS: MIRTAZAPINE 15 MG TABLET PO SCH (21:33)
[2018-06-03] MEDS: MORPHINE SULFATE INJ 4 MG/ML DISP.SYRIN IV PRN ×4 (02:01→22:31)
[2018-06-03] MEDS: MEROPENEM 1 G in IV NS 0.9% 100 ML IV SCH ×3 (05:00→21:34)
[2018-06-03 08:00] VITALS: BP 97/59
[2018-06-03] MEDS: MULTIVITAMINS,THERAGRAN 1 UDTAB TABLET PO SCH (08:49)
[2018-06-03] MEDS: ENSURE ENLIVE CHOC 237 ML CAN PO SCH ×3 (08:49→17:41)
[2018-06-03] MEDS: SULFAMETH/TRIMETH 800/160 MG 1 UDTAB TABLET PO SCH ×2 (08:49→21:35)
[2018-06-03] MEDS: BACITRACIN/POLYMYXIN B 15 GM TUBE TP SCH (08:50)
[2018-06-03] MEDS: IV NS 0.9% 1,000 ML IV PRN ×2 (10:09→21:43)
[2018-06-03 16:00] VITALS: BP 110/80
[2018-06-03 17:00] VITALS: BP 110/62
[2018-06-03 20:00] VITALS: BP 84/49
[2018-06-03] MEDS: MIRTAZAPINE 15 MG TABLET PO SCH (21:35)
[2018-06-04] VITALS (10 sets, daily range): BP systolic 78–106; BP diastolic 42–64
[2018-06-04] MEDS: TRAMADOL HCL 50 MG TABLET PO PRN (03:06)
[2018-06-04] MEDS: MEROPENEM 1 G in IV NS 0.9% 100 ML IV SCH ×3 (05:03→20:31)
[2018-06-04] MEDS: MORPHINE SULFATE INJ 4 MG/ML DISP.SYRIN IV PRN ×3 (07:41→19:52)
[2018-06-04] MEDS: MULTIVITAMINS,THERAGRAN 1 UDTAB TABLET PO SCH (08:10)
[2018-06-04] MEDS: ENSURE ENLIVE CHOC 237 ML CAN PO SCH ×3 (08:10→16:44)
[2018-06-04] MEDS: SULFAMETH/TRIMETH 800/160 MG 1 UDTAB TABLET PO SCH ×2 (08:10→20:31)
[2018-06-04] MEDS: BACITRACIN/POLYMYXIN B 15 GM TUBE TP SCH (08:11)
[2018-06-04 09:15] LABS: BASOPHILS % (AUTO) 0.1 % (0.0-2.0); EOSINOPHILS % (AUTO) 0.1 % (0.0-6.0); HEMATOCRIT 21 % (39-51); LYMPHOCYTES # (AUTO) 0.4 /CMM (0.8-4.8); LYMPHOCYTES % (AUTO) 18.2 % (20.0-44.0); MEAN CORPUSCULAR HGB CONC 33 g/dl (31.0-36.0); MEAN CORPUSCULAR VOLUME 83 fL (80-96); MONOCYTES # (AUTO) 0.2 /CMM (0.1-1.30); MONOCYTES % (AUTO) 10.1 % (2.0-12.0); NEUTROPHILS # (AUTO) 1.7 /CMM (1.8-8.9); NEUTROPHILS % (AUTO) 71.5 % (43.0-81.0); PLATELET COUNT (AUTO) 113 /CMM (150-450); RDW COEFFICIENT OF VARIATION 19.5 (11.5-15.0); RED BLOOD CELL COUNT(AUTO) 2.52 MIL/uL (4.5-6.0); WHITE BLOOD COUNT (AUTO) 2.4 K/uL (4.3-11.0)
[2018-06-04 09:28] LABS: CREATININE 0.7 mg/dL (0.6-1.3); MAGNESIUM 1.5 mg/dL (1.8-2.4); PHOSPHORUS 2.8 mg/dL (2.5-4.9); POTASSIUM 4.2 mmol/L (3.5-5.1)
[2018-06-04 09:35] LABS: CALCIUM, SERUM 7.2 mg/dL (8.5-10.1)
[2018-06-04 09:42] LABS: HEMOGLOBIN 6.8 g/dL (13.5-17.5)
[2018-06-04] MEDS: Magnesium 1GM/D5W 100ML PREMIX 100 ML IV SCH ×2 (10:27→11:52)
[2018-06-04] MEDS: IV NS 0.9% 1,000 ML IV PRN (11:55)
[2018-06-04 12:20] LABS: BAND % (MANUAL) 1 % (0.0-5.0); LYMPHOCYTES % (MANUAL) 17 % (16-48); MONOCYTES % (MANUAL) 9 % (0-11.0); NEUTROPHILS % (MANUAL) 73 (42-76)
[2018-06-04] MEDS: MIRTAZAPINE 15 MG TABLET PO SCH (21:02)
[2018-06-05] MEDS: MORPHINE SULFATE INJ 4 MG/ML DISP.SYRIN IV PRN ×2 (02:29→10:58)
[2018-06-05] MEDS: IV NS 0.9% 1,000 ML IV PRN (03:48)
[2018-06-05] MEDS: MEROPENEM 1 G in IV NS 0.9% 100 ML IV SCH ×2 (04:00→13:19)
[2018-06-05 08:00] VITALS: BP 90/60
[2018-06-05] MEDS: ENSURE ENLIVE CHOC 237 ML CAN PO SCH ×3 (08:48→16:54)
[2018-06-05] MEDS: BACITRACIN/POLYMYXIN B 15 GM TUBE TP SCH (10:00)
[2018-06-05] MEDS: SULFAMETH/TRIMETH 800/160 MG 1 UDTAB TABLET PO SCH (10:00)
[2018-06-05] MEDS: MULTIVITAMINS,THERAGRAN 1 UDTAB TABLET PO SCH (10:00)
[2018-06-05 12:29] LABS: CREATININE 0.7 mg/dL (0.6-1.3); MAGNESIUM 1.5 mg/dL (1.8-2.4); PHOSPHORUS 2.4 mg/dL (2.5-4.9); POTASSIUM 4.3 mmol/L (3.5-5.1)
[2018-06-05 13:02] LABS: BASOPHILS % (AUTO) 0.2 % (0.0-2.0); EOSINOPHILS % (AUTO) 0.2 % (0.0-6.0); HEMATOCRIT 24 % (39-51); HEMOGLOBIN 7.9 g/dL (13.5-17.5); LYMPHOCYTES # (AUTO) 0.4 /CMM (0.8-4.8); LYMPHOCYTES % (AUTO) 15.8 % (20.0-44.0); MEAN CORPUSCULAR HGB CONC 33 g/dl (31.0-36.0); MEAN CORPUSCULAR VOLUME 84 fL (80-96); MONOCYTES # (AUTO) 0.2 /CMM (0.1-1.30); MONOCYTES % (AUTO) 9.3 % (2.0-12.0); NEUTROPHILS # (AUTO) 1.8 /CMM (1.8-8.9); NEUTROPHILS % (AUTO) 74.5 % (43.0-81.0); PLATELET COUNT (AUTO) 134 /CMM (150-450); RDW COEFFICIENT OF VARIATION 19.4 (11.5-15.0); RED BLOOD CELL COUNT(AUTO) 2.81 MIL/uL (4.5-6.0); WHITE BLOOD COUNT (AUTO) 2.4 K/uL (4.3-11.0)
[2018-06-05 16:00] VITALS: BP 104/56
[2018-06-05] MEDS ORDERED: K PHOS NEUTRAL 250 MG TABLET PO ONE (16:00)
== END 2018-06-05 17:29 | disposition home or self-care (01) | DRG 890 ==
LOC: ER 23:03 → MED 05-20 01:24
PROVIDERS: ADMIT Internal Medicine; ATTEND Hospitalist
PROC: 30233N1 Transfusion of Nonautologous Red Blood Cells into Peripheral Vein, Percutaneous Approach (ICD-10-PCS; principal; 2018-05-25)
DX: A41.9 Sepsis, unspecified organism (principal); B20 Human immunodeficiency virus [HIV] disease; J15.5 Pneumonia due to Escherichia coli; N17.0 Acute kidney failure with tubular necrosis; I76 Septic arterial embolism; E43 Unspecified severe protein-calorie malnutrition; B37.81 Candidal esophagitis; E83.42 Hypomagnesemia; E87.1 Hypo-osmolality and hyponatremia; E86.0 Dehydration; G40.909 Epilepsy, unspecified, not intractable, without status epilepticus; N39.0 Urinary tract infection, site not specified; Z59.0 Homelessness; J45.909 Unspecified asthma, uncomplicated; F17.200 Nicotine dependence, unspecified, uncomplicated; D47.3 Essential (hemorrhagic) thrombocythemia; Z88.6 Allergy status to analgesic agent; E73.9 Lactose intolerance, unspecified; Z91.19 Patient's noncompliance with other medical treatment and regimen; Z91.14 Patient's other noncompliance with medication regimen; Z79.2 Long term (current) use of antibiotics; F32.9 Major depressive disorder, single episode, unspecified; F41.9 Anxiety disorder, unspecified; F11.10 Opioid abuse, uncomplicated; E86.1 Hypovolemia; D73.1 Hypersplenism; D63.8 Anemia in other chronic diseases classified elsewhere; E87.6 Hypokalemia; F43.23 Adjustment disorder with mixed anxiety and depressed mood; I27.20 Pulmonary hypertension, unspecified; K52.9 Noninfective gastroenteritis and colitis, unspecified; Z51.5 Encounter for palliative care; B95.8 Unspecified staphylococcus as the cause of diseases classified elsewhere
CPT/HCPCS: 36415; 71045-TC; 71250-TC; 80048-TC; 80061-TC; 80074; 80076-TC; 80202-TC; 80305; 81000-TC; 82272-TC; 83605-TC; 83615-TC; 83690-TC; 83735-TC; 84100-TC; 84439-TC; 84443-TC; 84484-TC; 85025-TC; 85730-TC; 86360; 86480; 86644; 86645; 86850-TC; 86921-TC; 87040-TC; 87045-TC; 87070-TC; 87081-TC; 87086-TC; 87102-TC; 87116; 87177; 87186-TC; 87206; 87209; 87281; 87400; 87806; 87899; A4218; A4606; G0378; J2185; J2270; J2543; J3370; J3475; J7030; J7050; J7060; P9016-BL; Q0162; Z7610